=== PATIENT | female | born 1965 | race Caucasian/White ===

== ENCOUNTER → 2018-01-20 09:29 | Outpatient (CLI) | payer OTHER, SELFPAY | PROVIDERS: Family Provider Family Medicine; PCP Family Medicine; Visit Provider Internal Medicine Rheumatology | DX: M54.5 Low back pain (principal) | CPT/HCPCS: 72148; 72195 ==

== ENCOUNTER → 2018-06-03 07:12 | Outpatient (CLI) | payer OTHER, SELFPAY ==
[2018-06-03 10:24] LABS: Hemoglobin 12.8 g/dl (12.0-15.0); Mean Corp Hgb Conc 32.8 g/gl (32-36); Mean Corpuscular Hgb 31.2 pg (27.0-32.0); Mean Corpuscular Volume 95.1 fL (81-99); Mean Platelet Vol. 9.9 fl (6.2-12.0); Platelet Count 264 K/mm3 (150-450); RBC Distribution Width CV 12.6 % (11.6-14.6); RBC Distribution Width SD 44.1 fl (35.1-43.9); Scan Indicated on CBC? Y/N NO; White Blood Count 4.1 K/mm3 (4.4-11.0)
[2018-06-03 10:44] LABS: Vitamin D,25 Hydroxy 35.6 ng/mL (29.95-100.01)
[2018-06-03 10:53] LABS: AST(SGOT) 18 U/L (15-37); Alanine Aminotransfer ALT/SGPT 29 U/L (13-56); Albumin, Serum 3.7 g/dL (3.2-5.0); Alkaline Phosphatase 65 U/L (45-117); Anion Gap 8 (5-15); BUN 17 mg/dL (7-18); BUN/Creat Ratio 21.6 RATIO (10-20); Calcium,Total 8.9 mg/dL (8.5-10.1); Chloride 106 mmol/L (98-107); Cholesterol 248 mg/dL (200); Creatinine, Serum 0.79 mg/dL (0.55-1.02); EST Glomerular Filtration Rate 81 mL/min (>60); Est Glom Filt Rate - Afr Amer 98 mL/min (>60); Globulin 3.6 g/dL (2.2-4.2); Glucose 86 mg/dL (74-106); High Density Lipoprotein 74 mg/dL; Potassium 4.3 mmol/L (3.5-5.1); Protein, Total 7.3 g/dL (6.4-8.2); Sodium Level 142 mmol/L (136-145); Thyroid Stim Hormone (TSH) 6.04 uIU/mL (0.358-3.74); Triglycerides 66 mg/dL; Very Low Density Lipoprotein 13 mg/dL (5-40)
[2018-06-04 10:32] LABS: T4 Free Direct 0.86 ng/dL (0.76-1.46)
== END ==
PROVIDERS: Family Provider Family Medicine; PCP Family Medicine; Referring Provider Family Medicine; Visit Provider Family Medicine
DX: L40.50 Arthropathic psoriasis, unspecified (principal); R79.89 Other specified abnormal findings of blood chemistry; Z13.220 Encounter for screening for lipoid disorders; Z13.29 Encounter for screening for other suspected endocrine disorder
CPT/HCPCS: 36415; 80053; 80061; 82306; 84439; 84443; 85027

== ENCOUNTER → 2018-07-16 07:05 | Outpatient (CLI) | payer OTHER, SELFPAY ==
[2018-07-16 10:25] LABS: T4 Free Direct 1.36 ng/dL (0.76-1.46); Thyroid Stim Hormone (TSH) 0.58 uIU/mL (0.358-3.74)
== END ==
PROVIDERS: Family Provider Family Medicine; PCP Family Medicine; Referring Provider Family Medicine; Visit Provider Family Medicine
DX: R79.89 Other specified abnormal findings of blood chemistry (principal)
CPT/HCPCS: 36415; 84439; 84443

== ENCOUNTER 2018-09-20 22:17 | Emergency (ER) | payer OTHER, SELFPAY ==
[2018-09-20 22:18] VITALS: BP 160/88; PULSE 107; RESP 16; TEMP 36.6; O2SAT 100; BMI 25.4
--- NOTE | 2018-09-20 22:34 | ED.VIS.GEN ---
History of Present Illness Chief Complaint: Flank Pain Informant: Patient Narrative: Presents with right back pain. Patient stated yesterday she started having some aching pain in her right kidney. She has had kidney infections in the past. No significant home treatment. She has had some nausea. She denies any dysuria but she is having less urination than she normally does. No abdominal pain. She does not have any vomiting. Normal bowel movement tonight. Her pain is only in her back where her kidney lies. She has had a remote kidney stone. She is noted no blood in her urine. She has no right side pain or right abdominal pain. She has had a remote hysterectomy and unilateral oophorectomy. Current severity is mild to moderate. Nothing makes it better. Is not movement related. No injury. Past Medical History - Allergies and Home Meds Allergies/Adverse Reactions: Allergies codeine Allergy (Verified 09/20/18 22:20) Itching meloxicam [From Mobic] Allergy (Verified 09/20/18 22:20) Hives ciprofloxacin Adverse Reaction (Verified 09/20/18 22:20) Nausea nitrofurantoin [From Macrobid] Adverse Reaction (Verified 09/20/18 22:20) Nausea nitrofurantoin macrocrystalline [From Macrobid] Adverse Reaction (Verified 09/20/18 22:20) Nausea Primary Care Physician: Art Castaneda MD [Primary Care Provider] - Adis Antonio MD [STAFF PHYSICIAN] - Prior records reviewed: Yes Surgical History: hysterectomy Lives: Spouse/ Significant Other Smoking Status: Never smoker Alcohol: None Drugs: None Review of Systems General: Denies: Chills, Fever, Sweats Eyes: Denies: Visual changes - bilaterally, Diplopia ENT: Denies: Rhinorrhea, Sore throat Cardiovascular: Denies: Chest pain, Palpitations Respiratory: Denies: Dyspnea, Cough, Dyspnea on exertion Gastrointestinal: Reports: Nausea. Denies: Abdominal pain, Vomiting, Diarrhea, Melena, Hematochezia Genitourinary: Denies: Dysuria, Hematuria, Frequency Musculoskeletal: Reports: Back pain. Denies: Extremity Pain Skin: Denies: Rash, Wounds Neurological: Denies: Headache, Weakness, Numbness Physical Exam Vital Signs/Narrative: Vital Signs Temp Pulse Resp BP Pulse Ox 09/20/18 22:18 97.8 F 107 H 16 160/88 H 100 General: Well nourished, Well developed, No Acute Distress Head: Normocephalic, Atraumatic Eyes: Perrl, EOMI ENT: Moist mucous membranes, No rhinorrhea Neck: Supple, Nontender Cardiovascular: Regular rate, Regular rhythm, No murmurs Respiratory: No distress, CTA bilaterally, Chest nontender Abdomen: Soft, Nontender, Nondistended, Normal bowel sounds Back: Normal Inspection, CVA tenderness - Tenderness on the right. No flank tenderness.. Negative for: Nontender Extremities: Nontender, No edema Skin: Normal color, No rash Neurological: Alert, Oriented x3, Cranial nerves II-XII grossly intact, Normal Strength, Normal Sensation Psychological: Normal affect, Normal Mood Diagnostic/Tx/Re-eval - Medical Decision Making Patient given injection of morphine and po Zofran. Urine analysis obtained. Urinalysis negative for infection. Discussed with the patient and we decided to do further lab work. CBC relatively unremarkable. Electrolyte panel just shows a mildly elevated BUN otherwise nothing really acute. CT flank done to look for kidney stone or other abnormality. She has moderate hydronephrosis in the right kidney. However no stone seen. This hydronephrosis is up high at the ureteropelvic junction. I discussed this with the radiologist. He stated that it is probably from a stone. Patient has no congenital stenosis of her ureter that she knows of from the past. I do not think she needs an emergent admission. There is no urologist strategic planning consultant this evening to discuss outpatient follow-up. She has seen Dr. Antonio in the past and will call his office tomorrow. She feels much better. She will be discharged with Percocet, Zofran. She will continue ibuprofen. She probably has a nonvisualized stone with hydronephrosis. She understands that there may be another problem though. She could have a stenosis of the ureter. She understands this could be serious therefore she needs to follow-up. She understands she may need further imaging studies such as an IVP or MRI. ED Disposition - Plan for ED Patient: Disposition: Home or Assisted Living Diagnosis: Hydronephrosis of right kidney, Right flank pain Instructions: ED Flank Pain Uncertain Cause Prescriptions: Oxycodone HCl/Acetaminophen [Percocet 5/325] 1 tab PO Q6H PRN PRN 3 Days #12 tab PRN Reason: Pain Ondansetron [Zofran Odt] 4 mg PO Q8H PRN PRN #10 tab PRN Reason: Nausea Referrals: Art Castaneda MD [Primary Care Provider] - Adis Antonio MD [STAFF PHYSICIAN] -
[2018-09-20] MEDS: Morphine 4 MG/ML Syringe IM (22:48)
[2018-09-20] MEDS: Ondansetron ODT 4 MG Tablet PO (22:48)
[2018-09-20 23:02] LABS: Bacteria 0 SEEN /hpf (None Seen); Mucous, Urine 0 SEEN /hpf (<or=2+); Red Blood Cells-Urine 0 SEEN /hpf (0-5); White Blood Cells 0 SEEN /hpf (0-5)
[2018-09-20 23:13] LABS: Color, Urine Yellow (Yellow); Glucose, Dipstick Normal (Normal); Ketone-Dipstick Negative (Negative); Leukocyte Esterase-Dipstick Negative /ul (Negative); Nitrite-Dipstick Negative (Negative); Occult Blood-Urine Negative /ul (Negative); Protein-Dipstick Negative (Negative); Urine Bilirubin Dipstick Negative (Negative); Urine Clarity Sl. Cloudy (Clear); Urine Urobilinogen Normal (Normal)
[2018-09-20 23:19] LABS: Squamous Epithelial Cells - UA 0-5 SEEN /hpf (5-10)
--- NOTE | 2018-09-20 23:32 | CT_ITS ---
STUDY: CT ABDOMEN AND PELVIS WITHOUT CONTRAST REASON FOR EXAM: Female, 53 years old. Right lower quadrant pain. RADIATION DOSAGE (If Supplied By Facility): CTDIvol = ( 6.91 ) mGy, DLP = ( 340.32 ) mGycm TECHNIQUE: Transaxial images were obtained from the dome of the diaphragm to the symphysis pubis without oral contrast, and without intravenous contrast. Sagittal and coronal images were reconstructed. Individualized dose optimization techniques were used for this CT. COMPARISON: None. FINDINGS: The visualized lung bases are unremarkable. The visualized portions of the heart are within normal limits. There is a cyst in the right lobe of liver segment #8 measures 1.5 cm. Normal gallbladder and extrahepatic biliary system. Normal spleen. Normal pancreas. Normal bilateral adrenal glands. There is moderate hydronephrosis may be due to ureteropelvic junction stenosis no stones are seen in the right ureter. Normal left kidney. Normal visualized stomach. Normal small intestine. There are multiple colonic diverticula consistent with diverticulosis. There is mobile cecum. The appendix is visualized and appears normal. Normal abdominal aorta. Normal inferior vena cava. Normal retroperitoneum. Normal urinary bladder. Normal abdominal wall. Normal osseous structures. CT/Abdomen/Pelvis without Cont IMPRESSION: There is moderate hydronephrosis may be due to ureteropelvic junction stenosis no stones are seen in the right kidney are right ureter. Electronically Signed: Hao Sun, at 1:10 EDT Tel , Service support ,
[2018-09-20] MEDS: 0.9% Normal Saline 1,000 ML 250 ML IV (23:45)
[2018-09-20 23:55] LABS: Absolute Lymphocyte Count 1.55 X10^3/ul (0.83-4.51); Absolute Neutrophil Count 3.1 X10^3/uL (2.0-7.7); Basophil# 0.04 X10^3/uL; Basophil% 0.7 % (0-1); Eosinophil# 0.29 X10^3/uL; Hematocrit 37.5 % (37-47); Hemoglobin 12.9 g/dl (12.0-15.0); Lymphocyte # 1.55 X10^3/ul (4.0); Lymphocyte % 26.6 % (19-41); Mean Corp Hgb Conc 34.4 g/gl (32-36); Mean Corpuscular Hgb 31.7 pg (27.0-32.0); Mean Corpuscular Volume 92.1 fL (81-99); Mean Platelet Vol. 9.8 fl (6.2-12.0); Monocyte# 0.81 X10^3/uL; Monocyte% 13.9 % (0-10); Neutrophil # 3.12 X10^3/uL (2.7-7.7); Neutrophil % 53.6 % (47-70); POSITIVE DIFFERENTIAL NO; Platelet Count 277 K/mm3 (150-450); RBC Distribution Width CV 12.6 % (11.6-14.6); RBC Distribution Width SD 42.4 fl (35.1-43.9); Red Blood Count 4.07 M/mm3 (4.2-5.4); White Blood Count 5.8 K/mm3 (4.4-11.0)
[2018-09-20 23:56] LABS: POSITIVE COUNT NO; POSITIVE MORPHOLOGY NO
[2018-09-21 00:02] LABS: Anion Gap 2 (5-15); BUN 22 mg/dL (7-18); BUN/Creat Ratio 29.1 RATIO (10-20); Calcium,Total 8.9 mg/dL (8.5-10.1); Chloride 109 mmol/L (98-107); Creatinine, Serum 0.76 mg/dL (0.55-1.02); EST Glomerular Filtration Rate 85 mL/min (>60); Est Glom Filt Rate - Afr Amer 102 mL/min (>60); Estimated Creatinine Clearance 72.22 ml/min; Glucose 109 mg/dL (74-106); Potassium 4.3 mmol/L (3.5-5.1); Sodium Level 142 mmol/L (136-145)
[2018-09-21 01:57] VITALS: RESP 14
== END 2018-09-21 01:58 | disposition home or self-care (01) ==
PROVIDERS: Emergency Provider Emergency Medicine; Family Provider Family Medicine; PCP Family Medicine
DX: N13.30 Unspecified hydronephrosis (principal); R10.9 Unspecified abdominal pain; R11.0 Nausea; Z79.899 Other long term (current) drug therapy; Z87.442 Personal history of urinary calculi; Z90.710 Acquired absence of both cervix and uterus
CPT/HCPCS: 74176; 80048; 81001; 85025; 96360; 96361; 96372; 99283; J7030; A4216

== ENCOUNTER → 2018-09-25 10:29 | Outpatient (CLI) | payer OTHER, SELFPAY ==
[2018-09-20 22:18] VITALS: BMI 25.4
--- NOTE | 2018-09-25 10:34 | NM_ITS ---
CLINICAL: 53-year-old female with history of right kidney hydronephrosis. 99m Tc MAG3 DIURETIC RENAL SCINTIGRAPHY COMPARISON: CT of the abdomen-pelvis report 09/20/2018 FINDINGS: Following the intravenous administration of 10.8 mCi of 99m Tc MAG3, renal images reveal: 1. The flow study demonstrates symmetric arterial phase distribution of the radiopharmaceutical. 2. Immediate static delayed nephrogram images depict prompt, homogeneous tracer uptake by the renal parenchyma of both kidneys. Collecting structure visualization is identified at 3 minutes following tracer injection bilaterally. Washout of the radiopharmaceutical by the renal parenchyma appears qualitatively normal in both kidneys. Persistent collecting system activity is defined in the renal units during 20 minutes of pre-Lasix sequential image acquisition. Spontaneous drainage of the left kidney collecting system is demonstrated prior to furosemide administration. 3. The alwjw-rd-[id number] ratio of total renal parenchymal function was calculated to be 50/50. Furosemide 10 mg was administered intravenously. The post Lasix T 1/2 washout of the right kidney collecting system activity was calculated to be < 10 minutes, (normal < 10 minutes). NM/Renal Scan w/o Pharm Interven IMPRESSION: 1. There is preservation of bilateral renal parenchymal, cortical function. 2. The prominent-ectatic right kidney collecting system demonstrates a normal physiologic response to induced diuresis negating the presence of significant mechanical and/or functional obstruction. Electronically Signed: George Scherer DO at 8:08 EDT Tel , Service support ,
== END ==
PROVIDERS: Family Provider Family Medicine; PCP Family Medicine; Referring Provider Urology; Visit Provider Urology
DX: N13.30 Unspecified hydronephrosis (principal)
CPT/HCPCS: 78707; A9562; J1940

== ENCOUNTER → 2019-05-27 08:31 | Outpatient (CLI) | payer OTHER, SELFPAY ==
[2019-05-27 10:50] LABS: BUN 22 mg/dL (7-18); Creatinine, Serum 0.73 mg/dL (0.55-1.02); Glucose 95 mg/dL (74-106)
[2019-05-27 10:51] LABS: AST(SGOT) 20 U/L (15-37); Alanine Aminotransfer ALT/SGPT 29 U/L (13-56); Albumin, Serum 3.7 g/dL (3.2-5.0); Alkaline Phosphatase 70 U/L (45-117); Anion Gap 6 (5-15); BUN/Creat Ratio 30.1 RATIO (10-20); Chloride 106 mmol/L (98-107); Cholesterol 243 mg/dL (200); EST Glomerular Filtration Rate 88 mL/min (>60); Est Glom Filt Rate - Afr Amer 106 mL/min (>60); Globulin 3.7 g/dL (2.2-4.2); High Density Lipoprotein 81 mg/dL; Potassium 4.2 mmol/L (3.5-5.1); Protein, Total 7.4 g/dL (6.4-8.2); Sodium Level 140 mmol/L (136-145); T4 Free Direct 0.97 ng/dL (0.76-1.46); Thyroid Stim Hormone (TSH) 2.84 uIU/mL (0.358-3.74); Triglycerides 64 mg/dL; Very Low Density Lipoprotein 13 mg/dL (5-40)
[2019-05-27 11:43] LABS: Vitamin D,25 Hydroxy 25.7 ng/mL (29.95-100.01)
== END ==
PROVIDERS: Family Provider Family Medicine; PCP Family Medicine; Referring Provider Family Medicine; Visit Provider Family Medicine
DX: L40.50 Arthropathic psoriasis, unspecified (principal); E03.9 Hypothyroidism, unspecified; Z13.220 Encounter for screening for lipoid disorders
CPT/HCPCS: 36415; 80053; 80061; 82306; 84439; 84443

== ENCOUNTER → 2019-09-03 08:21 | Outpatient (CLI) | payer OTHER, SELFPAY ==
--- NOTE | 2019-09-03 08:27 | RAD_ITS ---
STUDY: X-RAY CHEST REASON FOR EXAM: Female, 54 years old. Cough, mid anterior chest burning x 1 month TECHNIQUE: PA and lateral views of the chest. COMPARISON: Comparison is made with prior examination dated November 01, 2016. FINDINGS: The previously seen left lower lobe infiltrate has cleared. Minimal increased markings in the upper lobes. Follow-up is recommended. Hyperinflation. There is no demonstrated pleural abnormality. Normal size heart. Normal mediastinum and nicole. Normal visualized pulmonary arteries. Normal visualized aortic arch and descending thoracic aorta. Normal visualized thoracic spine. Normal visualized ribs, clavicles, and shoulders. There is no demonstrated abnormality of the visualized soft tissue structures of the upper abdomen. RAD/Chest PA and Lateral IMPRESSION: Minimal increased markings in both upper lobes. Radiographic follow-up is recommended. Electronically Signed: Cole King, at 9:26 EDT , Service support ,
[2019-09-03 10:15] LABS: Absolute Lymphocyte Count 1.15 X10^3/uL (0.83-4.51); Absolute Neutrophil Count 2.7 X10^3/uL (2.0-7.7); Basophil# 0.04 X10^3/uL; Basophil% 0.9 % (0-1); Eosinophil# 0.11 X10^3/uL; Eosinophils% 2.5 % (0-5); Hematocrit 40.4 % (37-47); Hemoglobin 13.2 g/dL (12.0-15.0); Lymphocyte # 1.15 X10^3/ul (4.0); Lymphocyte % 25.8 % (19-41); Mean Corp Hgb Conc 32.7 g/dL (32-36); Mean Corpuscular Hgb 30.8 pg (27.0-32.0); Mean Corpuscular Volume 94.2 fL (81-99); Mean Platelet Vol. 10.5 fl (6.2-12.0); Monocyte# 0.45 X10^3/uL; Monocyte% 10.1 % (0-10); NRBC Flagged by Analyzer 0 % (0-5); Neutrophil # 2.69 X10^3/uL (2.7-7.7); Neutrophil % 60.5 % (47-70); Platelet Count 275 K/mm3 (150-450); RBC Distribution Width CV 12.7 % (11.6-14.6); RBC Distribution Width SD 43.8 fl (35.1-43.9); Red Blood Count 4.29 M/mm3 (4.2-5.4); White Blood Count 4.5 K/mm3 (4.4-11.0)
[2019-09-03 10:25] LABS: Anion Gap 3 (5-15); BUN 21 mg/dL (7-18); BUN/Creat Ratio 25.8 RATIO (10-20); Calcium,Total 9.6 mg/dL (8.5-10.1); Chloride 107 mmol/L (98-107); Creatinine, Serum 0.81 mg/dL (0.55-1.02); EST Glomerular Filtration Rate 77 mL/min (>60); Est Glom Filt Rate - Afr Amer 94 mL/min (>60); Glucose 98 mg/dL (74-106); Potassium 3.9 mmol/L (3.5-5.1); Sodium Level 141 mmol/L (136-145); Thyroid Stim Hormone (TSH) 2.31 uIU/mL (0.358-3.74)
== END ==
PROVIDERS: PCP Family Medicine; Referring Provider Family Medicine; Visit Provider Family Medicine
DX: R07.9 Chest pain, unspecified (principal); E03.9 Hypothyroidism, unspecified; R05 Cough
CPT/HCPCS: 36415; 71046; 80048; 84443; 85025

== ENCOUNTER → 2019-10-26 11:30 | Outpatient (CLI) | payer OTHER, SELFPAY ==
--- NOTE | 2019-10-26 11:32 | RAD_ITS ---
STUDY: X-RAY CHEST REASON FOR EXAM: Female, 54 years old. Cough TECHNIQUE: PA and lateral views of the chest. COMPARISON: 09/03/2019 FINDINGS: The lungs are clear and expanded. There is no demonstrated pleural abnormality. Normal size heart. Normal mediastinum and nicole. Normal visualized pulmonary arteries. Normal visualized aortic arch and descending thoracic aorta. Normal visualized thoracic spine. Normal visualized ribs, clavicles, and shoulders. There is no demonstrated abnormality of the visualized soft tissue structures of the upper abdomen. RAD/Chest PA and Lateral IMPRESSION: Normal x-ray examination of the chest. Electronically Signed: Hugo Kuo MD at 11:50 EDT , Service support ,
== END ==
PROVIDERS: PCP Family Medicine; Referring Provider Family Medicine; Visit Provider Family Medicine
DX: R05 Cough (principal)
CPT/HCPCS: 71046

== ENCOUNTER → 2019-12-07 16:46 | Outpatient (CLI) | payer OTHER, SELFPAY ==
[2019-12-07 17:35] LABS: Absolute Lymphocyte Count 1.36 X10^3/uL (0.83-4.51); Absolute Neutrophil Count 3.5 X10^3/uL (2.0-7.7); Basophil# 0.03 X10^3/uL; Basophil% 0.5 % (0-1); Eosinophil# 0.13 X10^3/uL; Eosinophils% 2.3 % (0-5); Hematocrit 40.5 % (37-47); Hemoglobin 13.2 g/dL (12.0-15.0); Lymphocyte # 1.36 X10^3/ul (4.0); Lymphocyte % 24.4 % (19-41); Mean Corp Hgb Conc 32.6 g/dL (32-36); Mean Corpuscular Hgb 31.4 pg (27.0-32.0); Mean Corpuscular Volume 96.4 fL (81-99); Mean Platelet Vol. 10.2 fl (6.2-12.0); Monocyte# 0.58 X10^3/uL; Monocyte% 10.4 % (0-10); NRBC Flagged by Analyzer 0 % (0-5); Neutrophil # 3.47 X10^3/uL (2.7-7.7); Neutrophil % 62.2 % (47-70); Platelet Count 281 K/mm3 (150-450); RBC Distribution Width CV 12.7 % (11.6-14.6); RBC Distribution Width SD 45.1 fl (35.1-43.9); White Blood Count 5.6 K/mm3 (4.4-11.0)
[2019-12-07 18:09] LABS: AST(SGOT) 13 U/L (15-37); Alanine Aminotransfer ALT/SGPT 27 U/L (13-56); Albumin, Serum 3.9 g/dL (3.2-5.0); Alkaline Phosphatase 73 U/L (45-117); Anion Gap 6 (5-15); BUN 23 mg/dL (7-18); Calcium,Total 8.7 mg/dL (8.5-10.1); Chloride 105 mmol/L (98-107); Creatinine, Serum 0.77 mg/dL (0.55-1.02); EST Glomerular Filtration Rate 83 mL/min (>60); Est Glom Filt Rate - Afr Amer 100 mL/min (>60); Globulin 3.8 g/dL (2.2-4.2); Glucose 94 mg/dL (74-106); Potassium 3.7 mmol/L (3.5-5.1); Protein, Total 7.7 g/dL (6.4-8.2); Sodium Level 140 mmol/L (136-145)
== END ==
PROVIDERS: PCP Family Medicine; Referring Provider Family Medicine; Visit Provider Family Medicine
DX: R10.9 Unspecified abdominal pain (principal)
CPT/HCPCS: 36415; 80053; 85025

== ENCOUNTER → 2020-02-18 | Outpatient (CLI) | payer OTHER, SELFPAY | END | disposition home or self-care (01) | LOC: LABSPEC 15:57 | PROVIDERS: PCP Family Medicine; Visit Provider Family Medicine | DX: N39.0 Urinary tract infection, site not specified (principal) | CPT/HCPCS: 87086; 87088 ==

== ENCOUNTER → 2020-07-11 08:01 | Outpatient (CLI) | payer OTHER, SELFPAY ==
[2020-07-11 10:12] LABS: Vitamin D,25 Hydroxy 29.2 ng/mL
[2020-07-11 10:25] LABS: Anion Gap 1 (5-15); BUN 27 mg/dL (7-18); BUN/Creat Ratio 27.6 RATIO (10-20); Calcium,Total 9.4 mg/dL (8.5-10.1); Chloride 105 mmol/L (98-107); Creatinine, Serum 0.98 mg/dL (0.55-1.02); EST Glomerular Filtration Rate 62 mL/min (>60); Est Glom Filt Rate - Afr Amer 75 mL/min (>60); Glucose 91 mg/dL (74-106); Potassium 3.9 mmol/L (3.5-5.1); Sodium Level 137 mmol/L (136-145); T4 Free Direct 0.89 ng/dL (0.76-1.46); Thyroid Stim Hormone (TSH) 2.98 uIU/mL (0.358-3.74)
== END ==
PROVIDERS: PCP Family Medicine; Referring Provider Family Medicine; Visit Provider Family Medicine
DX: K29.60 Other gastritis without bleeding (principal); E03.9 Hypothyroidism, unspecified; E55.9 Vitamin D deficiency, unspecified
CPT/HCPCS: 36415; 80048; 82306; 84439; 84443

== ENCOUNTER → 2020-11-13 14:23 | Outpatient (CLI) | payer SELFPAY ==
--- NOTE | 2020-11-13 14:32 | CT_ITS ---
STUDY: CT CHEST WITHOUT CONTRAST-Limited (Overread for coronary calcium scoring) REASON FOR EXAM: Female, 55 years old. CAD RADIATION DOSAGE (If Supplied By Facility): CTDIvol = ( 12.19 ) mGy, DLP = ( 219.42 ) mGycm TECHNIQUE: Transaxial imaging was performed without the administration of intravenous contrast material. Individualized dose optimization techniques were used for this CT. COMPARISON: None. FINDINGS: There are scattered areas of peribronchial micronodules and reticulation involving the bilateral upper and right lower lobes. No dense airspace consolidation. No discrete mass. There is no demonstrated pleural abnormality. Heart and coronary arteries described on calcium scoring report. Normal mediastinum. Normal hilar regions. Normal unenhanced pulmonary arteries. Normal aorta arch and descending thoracic aorta. Normal osseous structures. Simple cyst of the anterior liver. No required imaging follow-up needed given high likelihood of benign nature. CT/Limited Chest CT w/CCTA IMPRESSION: 1. Bilateral upper lobe and right lower lobe peribronchial/bronchovascular micronodules and reticulation, most typical of pneumonitis or bronchiolitis, unknown acuity. Electronically Signed: Nelson Kay MD ([place]) at 8:29 EDT , Service support ,
[2020-11-13 14:36] VITALS: BP 137/68; PULSE 68; RESP 16; O2SAT 99; BMI 24.9
--- NOTE | 2020-11-20 09:59 | CA.SCORE ---
Calcium Scoring Date of Study:: 11/13/20 Coronary Calcium Scoring: High-resolution Computed Tomographic imaging of the chest was performed on 11/13/2020 with particular attention paid to the coronary arteries. Images from the examination were analyzed for the presence and extent of coronary artery calcification , using coronary calcium quantification software. The patient tolerated the procedure well and there were no complications. The results of the coronary calcification analysis are provided below. Findings Coronary Artery Left Main (LM): 0 Left Anterior Descending (LAD): 0 Left Circumflex (LCX): 0 Right Coronary Artery (RCA): 0 Total Agatston Score: 0 Percentile Ranking: Based upon prepublished reference tables 25% of the patients of the same gender/similar age had the same/lower scores. Calcium Scoring Interpretation: 0 No identifiable atherosclerotic plaque. Very low cardiovascular disease risk. <5% chance of presence coronary artery disease A Negative Examination 1-10 Minimal Plaque burden. Significant coronary artery disease very unlikely. 11-100 Mild plaque burden. Likely mild or minimal coronary atherosclerosis. 101-400 Moderate plaque burden Moderate non-obstructive coronary artery disease highly likely. Over 400 Extensive plaque burden. High likelihood of at least one significant coronary stenosis (>50% diameter) Calcium Score: 0 Negative Examination Conclusion: Continue cardiovascular evaluation and care as deemed appropriate.
== END ==
PROVIDERS: PCP Family Medicine; Referring Provider Family Medicine; Visit Provider Family Medicine
DX: E78.5 Hyperlipidemia, unspecified (principal); Z82.49 Family history of ischemic heart disease and other diseases of the circulatory system
CPT/HCPCS: 75571; 76380

== ENCOUNTER 2021-05-20 10:06 | Emergency (ER) | payer OTHER, SELFPAY ==
[2021-05-20] VITALS (10 sets, daily range): BP systolic 120–153; BP diastolic 61–126; PULSE 107–124; RESP 18–22; TEMP 36.9–38.8; O2SAT 90–100; BMI 27.6
--- NOTE | 2021-05-20 10:21 | RAD_ITS ---
STUDY: X-RAY CHEST REASON FOR EXAM: Female, 55 years old. Cough fever diverticulitis and abdominal pain for 3 weeks nausea cough TECHNIQUE: Frontal portable view of the chest COMPARISON: 26 Oct 2019 FINDINGS: The lungs are clear and expanded. There is no demonstrated pleural abnormality. Normal size heart. Normal mediastinum and nicole. Normal visualized pulmonary arteries. Normal visualized aortic arch and descending thoracic aorta. Normal visualized thoracic spine. Normal visualized ribs, clavicles, and shoulders. There is no demonstrated abnormality of the visualized soft tissue structures of the upper abdomen. RAD/Chest 1 View (Portable) IMPRESSION: Normal x-ray examination of the chest. Electronically Signed: Ania Beth MD at 11:30 EST Tel , Service support ,
--- NOTE | 2021-05-20 10:21 | CT_ITS ---
STUDY: CT ABDOMEN AND PELVIS WITH CONTRAST REASON FOR EXAM: Female, 55 years old. Abdominal pain -- IV PO Contrast RADIATION DOSAGE (If Supplied By Facility): CTDIvol = ( 12.99 ) mGy, DLP = ( 818.74 ) mGycm TECHNIQUE: Transaxial images were obtained from the dome of the diaphragm to the symphysis pubis without oral contrast. Oral and amp; IV Gastrografin and amp; 100mL [id number]-[id number] was administered. Sagittal and coronal images were reconstructed. Individualized dose optimization techniques were used for this CT. COMPARISON: CT of the chest dated 11/13/[address] of the abdomen and pelvis dated 12/07/2015 FINDINGS: There are new patchy opacities within the left lower lobe associated with bilateral lower lobe groundglass opacities . The visualized portions of the heart are within normal limits. There is a grossly stable 8 mm low-attenuation focus within the right hepatic lobe which may reflect an underlying cyst or hemangioma. There is an additional too small to characterize low-attenuation focus within the left hepatic lobe. There is a low-attenuation focus within segment 4 adjacent to the falciform ligament likely secondary to focal fat. Normal gallbladder and extrahepatic biliary system. Normal spleen. Normal pancreas. Normal bilateral adrenal glands. There are bilateral extrarenal pelvises, more pronounced on the right. Normal visualized stomach. Normal small intestine. There are multiple colonic diverticula consistent with diverticulosis. There is a stool filled cecum that is mildly dilated within the left abdomen. There appears to be fluid within the cecum visualized as well. The appendix is visualized and appears normal. Normal abdominal aorta. Normal inferior vena cava. Normal retroperitoneum. Normal urinary bladder. Normal abdominal wall. Normal osseous structures. CT/Abdomen/Pelvis WITH Contrast IMPRESSION: Mildly dilated and stool-filled cecum within the left abdomen with an appearance suggestive of a cecal bascule. New patchy opacities within the left lower lobe associated with bilateral lower lobe groundglass opacities may reflect pneumonia. Colonic diverticulosis. Electronically Signed: Nina Rios MD at 13:41 EST Tel , Service support ,
--- NOTE | 2021-05-20 10:24 | ED.VIS.GI ---
HPI HPI - GI History of Present Illness Chief Complaint: Abd Pain Informant: patient Abdominal Pain/Flank Pain Onset: Weeks (4) Context: Gradual Onset Timing: Continuous Quality: Dull Location: LUQ and LLQ Worsened by: - (Bowel movement) Relieved by: Nothing Nausea/Vomiting/Emesis GI Symptom: Positive for Nausea; Negative for Vomiting Diarrhea/Melena/Hematochezia GI Symptom: Negative for Diarrhea, Melena and Hematochezia Associated Symptoms Associated Symptoms: Negative for Dysuria, Frequency and Hematuria Narrative Narrative: Patient presents with left-sided abdominal pain that has been getting worse over the past 4 weeks. Patient states it has gotten worse over the last 1 to 3 days. Patient states it feels similar to prior episodes of diverticulitis. Patient describes her pain is dull. Patient states the pain is worse of the left upper and left lower quadrants. Patient states her pain is worse whenever she has a bowel movement. Patient admits to nausea but denies any vomiting. Patient denies any diarrhea, melena, or hematochezia. Patient denies any dysuria or hematuria. Patient also admits to some upper respiratory congestion with rhinorrhea and a cough. Patient admits to fevers of up to 100.7 at home. Patient also admits to a headache. [facility] Medical History (Updated 05/20/21 @ 17:[address] Kelvin Ramesh DO) Diverticulitis Home Medications levothyroxine 75 mcg PO DAILY 09/20/18 [History Last Taken Unknown] ondansetron 4 mg PO Q8H PRN PRN #10 tab 09/21/18 [Rx Last Taken Unknown] Allergy/AdvReac Type Severity Reaction Status Date / Time codeine Allergy Itching Verified 05/20/21 10:07 meloxicam [From Mobic] Allergy Hives Verified 05/20/21 10:07 ciprofloxacin AdvReac Nausea Verified 05/20/21 10:07 nitrofurantoin AdvReac Nausea Verified 05/20/21 10:07 [From Macrobid] nitrofurantoin AdvReac Nausea Verified 05/20/21 10:07 macrocrystalline [From Macrobid] Surgical History History of endometrial ablation History of hysterectomy Social History Smoking Status: Never smoker ROS ROS ED Constitutional Constitutional ED: Reports fever(s); Denies chills Eyes Eyes: Denies blurry vision or change in vision ENT ENT ED: Reports rhinorrhea; Denies sore throat Cardiovascular Cardiovascular: Reports chest pain; Denies palpitations Respiratory/Chest Respiratory/Chest: Reports cough; Denies dyspnea Gastrointestinal Gastrointestinal: Reports abdominal pain and nausea; Denies diarrhea, melena or vomiting Genitourinary Genitourinary ED: Denies dysuria or hematuria Musculoskeletal Musculoskeletal: Reports neck pain; Denies back pain Integumentary Denies abscess or rash Neurologic Neurologic: Reports headache(s); Denies weakness Allergic/Immunologic Allergic/Immunologic ED: Denies mouth swelling or urticaria EXAM Physical Exam Const Vital Signs: 05/20/21 10:07 05/20/21 10:22 05/20/21 10:53 Temperature 100.4 F H 100.4 F H Temperature Source Temporal Temporal Pulse Rate 113 H 113 H Respiratory Rate 18 18 Respiratory Effort Non-Labored Blood Pressure 153/126 H 153/126 H Blood Pressure Mean 135 135 Pulse Ox 100 100 Oxygen Delivery Method Room Air Room Air Oxygen Flow Rate (L/min) 05/20/21 11:12 05/20/21 12:00 05/20/21 13:25 Temperature 99.2 F H 99.2 F H Temperature Source Oral Oral Pulse Rate 121 H 121 H Respiratory Rate 18 20 H Respiratory Effort Blood Pressure 120/91 H 134/76 H Blood Pressure Mean 100 95 Pulse Ox 96 96 90 Oxygen Delivery Method Room Air Room Air Room Air Oxygen Flow Rate (L/min) 05/20/21 13:30 05/20/21 14:00 05/20/21 15:05 Temperature 98.9 F 98.9 F 98.5 F Temperature Source Oral Oral Temporal Pulse Rate 124 H 120 H 110 H Respiratory Rate 18 18 20 H Respiratory Effort Blood Pressure 129/73 H 126/62 H 130/75 H Blood Pressure Mean 91 83 93 Pulse Ox 96 96 95 Oxygen Delivery Method Nasal Cannula Nasal Cannula Room Air Oxygen Flow Rate (L/min) 2 2 05/20/21 16:11 05/20/21 17:11 Temperature 101.3 F H 101.8 F H Temperature Source Temporal Temporal Pulse Rate 107 H 112 H Respiratory Rate 22 H 18 Respiratory Effort Blood Pressure 134/61 H 130/70 H Blood Pressure Mean 85 90 Pulse Ox 97 97 Oxygen Delivery Method Room Air Room Air Oxygen Flow Rate (L/min) Positive well nourished and well developed General Appearance ED: well developed HEENT Reports moist mucous membranes Neck supple and no JVD Resp normal respiratory effort Auscultation: diminished lung sounds bilateral Cardio regular rate, regular rhythm and no murmurs GI normal to inspection, nondistended, normoactive bowel sounds and non-distended Palpation: soft and tender LLQ and LUQ; Negative for guarding or rebound tenderness present Extremity normal to inspection General Extremety ED: Negative for edema or tenderness General Extremity: Negative for edema Neuro oriented x3, CN's II-XII intact bilaterally and no sensory deficits noted Sensorium / Orientation: alert Motor Exam: strength 5/5 throughout Psych mental status grossly normal Skin no rashes or lesions noted MDM MDM MDM Narrative Medical decision making narrative: Patient was given IV fluids, morphine, and Zofran. CBC was within normal limits. Comprehensive metabolic profile was essentially within normal limits. Lipase was normal. Urinalysis does not show any evidence of urinary tract infection. Portable 1 view chest x-ray was obtained. On my interpretation, lung parrish are clear. There is normal cardiac silhouette. Bony thorax is normal. There is no acute process noted. Radiologist also interpreted the x-ray and agrees. CT scan of the abdomen and pelvis was obtained. There is a mildly dilated and stool-filled cecum within the left abdomen with an appearance suggestive of a cecal bascule. There are new patchy opacities in the left lower lobe and bilateral lower lobe groundglass opacities. This was interpreted by the radiologist and reviewed by myself. COVID-19 rapid antigen was obtained and was negative. Patient continued to have a headache. Patient was given Reglan and Benadryl. Patient was advised of her findings. Case was discussed with Dr. Coelho from general surgery. He will be in to evaluate the patient. He recommended obtaining a lactate which was normal. He discussed the case with the radiologist. Radiologist felt that this was chronic. He discussed options of laxatives with the patient. Patient is feeling better and wants to go home. Patient was instructed to take her laxatives as prescribed. Patient was given a dose of Tylenol here. Patient was instructed to continue Tylenol and ibuprofen as needed for any fevers. Patient was instructed to follow-up with her primary care physician as well as Dr. Coelho in 5 to 7 days. Patient understood and was agreeable with the plan. All questions were answered. Lab Data Attestation: I reviewed the patient's lab results. Labs: Laboratory Results - last 24 hr 05/20/21 05/20/21 05/20/21 10:24 10:24 10:38 WBC 9.4 RBC 4.18 L Hgb 13.1 Hct 39.7 MCV 95.0 MCH 31.3 MCHC 33.0 RDW Std Deviation 43.8 RDW Coeff of Faisal 12.5 Plt Count 316 MPV 9.4 Immature Gran % (Auto) 0.600 Neut % (Auto) 80.9 H Lymph % (Auto) 12.0 L [place] % (Auto) 5.3 Eos % (Auto) 0.9 Baso % (Auto) 0.3 Absolute Neuts (auto) 7.6 Absolute Lymphs (auto) 1.13 Nucleated RBC % 0 Sodium 138 Potassium 4.3 Chloride 104 Carbon Dioxide 28.0 Anion Gap 6 BUN 17 Creatinine 1.04 H Estim Creat Clear Calc 49.37 Est GFR (MDRD) Af Amer 70 Est GFR (MDRD) Non-Af 58 L BUN/Creatinine Ratio 16.3 Glucose 115 H Lactic Acid Calcium 9.4 Total Bilirubin 0.40 AST 36 ALT 48 Alkaline Phosphatase 126 H Total Protein 8.0 Albumin 3.5 Globulin 4.5 H Albumin/Globulin Ratio 0.8 L Lipase 85 Urine Color Yellow Urine Clarity Clear Urine pH 6.0 Ur Specific [place] 1.010 Urine Protein Negative Urine Glucose (UA) Normal Urine Ketones Negative Urine Occult Blood Negative Urine Nitrite Negative Urine Bilirubin Negative Urine Urobilinogen Normal Ur Leukocyte Esterase 25 H Urine RBC 0 SEEN Urine WBC 0 SEEN Ur Squamous Epith Cells 0 SEEN Urine Bacteria 0 SEEN Urine Mucus 0 SEEN 05/20/21 16:30 WBC RBC Hgb Hct MCV MCH MCHC RDW Std Deviation RDW Coeff of Faisal Plt Count MPV Immature Gran % (Auto) Neut % (Auto) Lymph % (Auto) [place] % (Auto) Eos % (Auto) Baso % (Auto) Absolute Neuts (auto) Absolute Lymphs (auto) Nucleated RBC % Sodium Potassium Chloride Carbon Dioxide Anion Gap BUN Creatinine Estim Creat Clear Calc Est GFR (MDRD) Af Amer Est GFR (MDRD) Non-Af BUN/Creatinine Ratio Glucose Lactic Acid 0.7 Calcium Total Bilirubin AST ALT Alkaline Phosphatase Total Protein Albumin Globulin Albumin/Globulin Ratio Lipase Urine Color Urine Clarity Urine pH Ur Specific [place]ckerman Urine Protein Urine Glucose (UA) Urine Ketones Urine Occult Blood Urine Nitrite Urine Bilirubin Urine Urobilinogen Ur Leukocyte Esterase Urine RBC Urine WBC Ur Squamous Epith Cells Urine Bacteria Urine Mucus Radiography Diagnostic Testing: Clinical Impression(s) from Imaging Studies Abdomen/Pelvis CT 05/20/21 10:21 IMPRESSION: Mildly dilated and stool-filled cecum within the left abdomen with an appearance suggestive of a cecal bascule. New patchy opacities within the left lower lobe associated with bilateral lower lobe groundglass opacities may reflect pneumonia. Colonic diverticulosis. Electronically Signed: Nina Rios MD at 13:41 EST Tel , Service support , Chest X-Ray 05/20/21 10:21 IMPRESSION: Normal x-ray examination of the chest. Electronically Signed: Ania Beth MD at 11:30 EST Tel , Service support , Discharge Plan Triage Chief Complaint: Abd Pain ED Provider: Kelvin Ramesh Dx/Rx/DC Orders Clinical Impression: Abdominal pain in female, Constipation, Acute febrile illness Instructions: ED Abdominal Pain Unkn Cause Fem, ED Fever Control (Adult) Prescriptions: No Action levothyroxine 75 MCG tablet 75 mcg PO DAILY RF: 0 ondansetron 4 MG tablet 4 mg PO Q8H PRN PRN (Reason: Nausea) Qty: 10 RF: 0 Primary Care Provider: Art Castaneda Referrals: Art Castaneda MD [Primary Care Provider] - 5-7 Days Titus Coelho MD [STAFF PHYSICIAN] - 5-7 Days Disposition Disposition: Home, Self Care
[2021-05-20 10:33] LABS: Absolute Lymphocyte Count 1.13 X10^3/uL (0.83-4.51); Absolute Neutrophil Count 7.6 X10^3/uL (2.0-7.7); Basophil# 0.03 X10^3/uL; Basophil% 0.3 % (0-1); Eosinophil# 0.08 X10^3/uL; Eosinophils% 0.9 % (0-5); Hematocrit 39.7 % (37-47); Hemoglobin 13.1 g/dL (12.0-15.0); Lymphocyte # 1.13 X10^3/ul (0.83-4.51); Mean Corpuscular Hgb 31.3 pg (27.0-32.0); Mean Platelet Vol. 9.4 fl (6.2-12.0); Monocyte% 5.3 % (0-10); NRBC Flagged by Analyzer 0 % (0-5); Neutrophil # 7.61 X10^3/uL (2.7-7.7); Neutrophil % 80.9 % (47-70); Platelet Count 316 K/mm3 (150-450); RBC Distribution Width CV 12.5 % (11.6-14.6); RBC Distribution Width SD 43.8 fl (35.1-43.9); Red Blood Count 4.18 M/mm3 (4.2-5.4); White Blood Count 9.4 K/mm3 (4.4-11.0)
[2021-05-20] MEDS: Morphine 4 MG/ML Syringe IV ×2 (10:43→12:56)
[2021-05-20] MEDS: Ondansetron 4 MG/2 ML Vial IV (10:43)
[2021-05-20] MEDS: 0.9% Normal Saline 1,000 ML 1000 ML IV ×2 (10:43→12:56)
[2021-05-20 10:52] LABS: ALB/GLOB Ratio 0.8 RATIO (0.9-2.4); AST(SGOT) 36 U/L (15-37); Alanine Aminotransfer ALT/SGPT 48 U/L (13-56); Albumin, Serum 3.5 g/dL (3.2-5.0); Alkaline Phosphatase 126 U/L (45-117); Anion Gap 6 (5-15); BUN 17 mg/dL (7-18); BUN/Creat Ratio 16.3 RATIO (10-20); Calcium,Total 9.4 mg/dL (8.5-10.1); Chloride 104 mmol/L (98-107); Creatinine, Serum 1.04 mg/dL (0.55-1.02); EST Glomerular Filtration Rate 58 mL/min (>60); Est Glom Filt Rate - Afr Amer 70 mL/min (>60); Estimated Creatinine Clearance 49.37 ml/min; Globulin 4.5 g/dL (2.2-4.2); Glucose 115 mg/dL (74-106); Lipase 85 U/L (73-393); Potassium 4.3 mmol/L (3.5-5.1); Sodium Level 138 mmol/L (136-145)
[2021-05-20 10:54] LABS: Bacteria 0 SEEN /hpf (None Seen); Mucous, Urine 0 SEEN /hpf (<or=2+); Red Blood Cells-Urine 0 SEEN /hpf (0-5); Squamous Epithelial Cells - UA 0 SEEN /hpf (5-10); White Blood Cells 0 SEEN /hpf (0-5)
[2021-05-20 10:55] LABS: Color, Urine Yellow (Yellow); Glucose, Dipstick Normal (Normal); Ketone-Dipstick Negative (Negative); Leukocyte Esterase-Dipstick 25 /ul (Negative); Nitrite-Dipstick Negative (Negative); Occult Blood-Urine Negative /ul (Negative); Protein-Dipstick Negative (Negative); Urine Bilirubin Dipstick Negative (Negative); Urine Clarity Clear (Clear); Urine Urobilinogen Normal (Normal)
[2021-05-20] MEDS: Metoclopramide 10 MG/2 ML Vial IV (16:33)
[2021-05-20] MEDS: DiphenhydrAMINE 50 MG/ML Syringe 25 MG IV (16:34)
[2021-05-20 17:06] LABS: Lactic Acid 0.7 mmol/L (0.4-1.9)
--- NOTE | 2021-05-20 17:27 | PCM.HP.STD ---
HPI - General HPI Narrative AGUSTO EVERETT, is a 55 F who presents to [facility] with a 4-week history of left lower quadrant abdominal pain. She states she has a remote history of diverticulitis and believed her symptoms to be connected to another diverticular flare. She confirms a chronic history of constipation and states a frequency of once every couple of days it is usually her normal routine, but it has been more difficult to have a bowel movement recently. She also describes an exacerbation of her left lower quadrant pain with any bowel movement she has. Mrs. Everett does states she had a rather normal bowel movement while in the emergency room following some use of fiber earlier today. Patient's ER work-up is notable for some vitals that show regular tachycardia and febrile with T-max of 101.5 Fahrenheit. Laboratory studies show a normal white blood cell count but a mild left shift. CT imaging is read as concerning for possible cecal bascule. Is for this reason that surgery is consulted for the further evaluation of the patient. Patient has a history of 2 prior colonoscopies. She states she is likely due for a follow-up/surveillance colonoscopy but denies any significant findings with her last exam. She states that her family history is full of diagnoses of colitis and diverticulitis but denies history of colon cancer. Lastly she confirms a history of hysterectomy. Beyond her abdominal complaints, patient complains of a severe headache and some recent upper respiratory issues. She and her have 14 grandchildren who are frequently in the home and frequently transmit their maladies to their grandparents. [facility] Medical History (Updated 05/20/21 @ 17:[address] Kelvin Ramesh, DO) Diverticulitis Home Medications levothyroxine 75 mcg PO DAILY 09/20/18 [History Last Taken Unknown] ondansetron 4 mg PO Q8H PRN PRN #10 tab 09/21/18 [Rx Last Taken Unknown] Allergy/AdvReac Type Severity Reaction Status Date / Time codeine Allergy Itching Verified 05/20/21 10:07 meloxicam [From Mobic] Allergy Hives Verified 05/20/21 10:07 ciprofloxacin AdvReac Nausea Verified 05/20/21 10:07 nitrofurantoin AdvReac Nausea Verified 05/20/21 10:07 [From Macrobid] nitrofurantoin AdvReac Nausea Verified 05/20/21 10:07 macrocrystalline [From Macrobid] Surgical History History of endometrial ablation History of hysterectomy Social History Smoking Status: Never smoker Vital Signs Vital Signs Vital Signs: 05/20/21 10:07 05/20/21 10:22 05/20/21 10:53 Temperature 100.4 F H 100.4 F H Temperature Source Temporal Temporal Pulse Rate 113 H 113 H Respiratory Rate 18 18 Respiratory Effort Non-Labored Blood Pressure 153/126 H 153/126 H Blood Pressure Mean 135 135 Pulse Ox 100 100 Oxygen Delivery Method Room Air Room Air Oxygen Flow Rate (L/min) 05/20/21 11:12 05/20/21 12:00 05/20/21 13:25 Temperature 99.2 F H 99.2 F H Temperature Source Oral Oral Pulse Rate 121 H 121 H Respiratory Rate 18 20 H Respiratory Effort Blood Pressure 120/91 H 134/76 H Blood Pressure Mean 100 95 Pulse Ox 96 96 90 Oxygen Delivery Method Room Air Room Air Room Air Oxygen Flow Rate (L/min) 05/20/21 13:30 05/20/21 14:00 05/20/21 15:05 Temperature 98.9 F 98.9 F 98.5 F Temperature Source Oral Oral Temporal Pulse Rate 124 H 120 H 110 H Respiratory Rate 18 18 20 H Respiratory Effort Blood Pressure 129/73 H 126/62 H 130/75 H Blood Pressure Mean 91 83 93 Pulse Ox 96 96 95 Oxygen Delivery Method Nasal Cannula Nasal Cannula Room Air Oxygen Flow Rate (L/min) 2 2 05/20/21 16:11 05/20/21 17:11 Temperature 101.3 F H 101.8 F H Temperature Source Temporal Temporal Pulse Rate 107 H 112 H Respiratory Rate 22 H 18 Respiratory Effort Blood Pressure 134/61 H 130/70 H Blood Pressure Mean 85 90 Pulse Ox 97 97 Oxygen Delivery Method Room Air Room Air Oxygen Flow Rate (L/min) Weight Weight: 156 lb 1.396 oz Body Mass Index (BMI) 27.6 Physical Exam Const alert and oriented x3 Constitutional Narrative: Mild distress?primarily from severe headache General Appearance: cooperative Resp normal respiratory effort Cardio Rate: tachycardic GI GI Narrative: Nondistended, mildly overweight, several port site incisions from prior laparoscopic operation. Nontender to palpation x4 quadrants aside from very mild tenderness in the left upper quadrant with deep palpation. Results Lab / Micro Data Result Diagrams: 05/20/21 10:24 05/20/21 10:24 Labs: Laboratory Results - last 24 hr 05/20/21 10:24: WBC 9.4, RBC 4.18 L, Hgb 13.1, Hct 39.7, MCV 95.0, MCH 31.3, MCHC 33.0, RDW Std Deviation 43.8, RDW Coeff of Faisal 12.5, Plt Count 316, MPV 9.4, Immature Gran % (Auto) 0.600, Neut % (Auto) 80.9 H, Lymph % (Auto) 12.0 L, [place] % (Auto) 5.3, Eos % (Auto) 0.9, Baso % (Auto) 0.3, Absolute Neuts (auto) 7.6, Absolute Lymphs (auto) 1.13, Nucleated RBC % 0 05/20/21 10:24: Sodium 138, Potassium 4.3, Chloride 104, Carbon Dioxide 28.0, Anion Gap 6, BUN 17, Creatinine 1.04 H, Estim Creat Clear Calc 49.37, Est GFR (MDRD) Af Amer 70, Est GFR (MDRD) Non-Af 58 L, BUN/Creatinine Ratio 16.3, Glucose 115 H, Calcium 9.4, Total Bilirubin 0.40, AST 36, ALT 48, Alkaline Phosphatase 126 H, Total Protein 8.0, Albumin 3.5, Globulin 4.5 H, Albumin/Globulin Ratio 0.8 L, Lipase 85 05/20/21 10:38: Urine Color Yellow, Urine Clarity Clear, Urine pH 6.0, Ur Specific [place] 1.010, Urine Protein Negative, Urine Glucose (UA) Normal, Urine Ketones Negative, Urine Occult Blood Negative, Urine Nitrite Negative, Urine Bilirubin Negative, Urine Urobilinogen Normal, Ur Leukocyte Esterase 25 H, Urine RBC 0 SEEN, Urine WBC 0 SEEN, Ur Squamous Epith Cells 0 SEEN, Urine Bacteria 0 SEEN, Urine Mucus 0 SEEN 05/20/21 16:30: Lactic Acid 0.7 Micro: Microbiology 05/20/21 10:35 Nasal Secretion SARS-CoV-2 Antigen (Rapid) - Final Radiology Impression Abdomen/Pelvis CT 05/20/21 10:21 IMPRESSION: Mildly dilated and stool-filled cecum within the left abdomen with an appearance suggestive of a cecal bascule. New patchy opacities within the left lower lobe associated with bilateral lower lobe groundglass opacities may reflect pneumonia. Colonic diverticulosis. Electronically Signed: Nina Rios MD at 13:41 EST Tel , Service support , Chest X-Ray 05/20/21 10:21 IMPRESSION: Normal x-ray examination of the chest. Electronically Signed: Ania Beth MD at 11:30 EST Tel , Service support , Assessment & Plan Assessment/Plan (1) Constipation: PLAN: This is a 55-year-old female who has a chronic history of constipation. Her normal bowel frequency is 1 bowel movement every other day while taking fiber supplements religiously. She has many radiographic examples of redundant colon as a result. I have stressed to her the need to consider promotility agents when faced with significant constipation and shared with her reasons for holding off fiber supplementation once she is gone more than a couple days without a bowel movement. When asked for more specific recommendations, I have advised her to begin 1 capful of MiraLAX daily, but increase this dose until she is able to achieve 1 soft bowel movement daily. I have also stressed to her the need to ensure she is up-to-date with her surveillance colonoscopies. She expresses understanding of this information and willingness to incorporate it. (2) Abdominal pain in female: PLAN: This is a 55-year-old female who presented with a 4-week history of abdominal pain that is progressed more over the past several days and had CT imaging showing concern for possible cecal bascule. In my independent review of the imaging, I do find an abnormal position of the cecum?overlying the area of the sigmoid colon. However, I do not see evidence of acute inflammation in the vicinity of the cecum either in the mesocolon or the colonic wall. Furthermore, I do not see evidence of any swirling of the mesentery to suggest a volvulus event. Significantly, there is evidence that the patient's colon has assumed this position over many years. In fact, our earliest imaging available in this EMR dates back to 2006 and at that time the patient had an abnormal medial lie of her cecum. Given these observations, and the patient's rather benign abdominal exam, I made contact with the reporting radiologist, Dr. Coburn, on the CT exam. Radiology confirmed the patient's imaging is very similar to that which was obtained in 2019 and also confirmed they did not see any evidence of bowel compromise or mesenteric swirl sign. Lastly, in search of more objective evidence against any acute change I obtained a lactic acid on the patient which came back well within the range of normal at 0.7. These observations were taken back to the patient and her where she was then reexamined as well. Abdominal exam did not change and and Mrs. Everett expressed understanding/appreciation for this information. Mrs. Everett remains tachycardic and febrile, and I do not have a explanation for this based on what is seen on her CT of the abdomen. It is possible these are related to a concurrent upper respiratory tract infection based on the other symptoms she describes. I shared with her that we could consider either an overnight observation or discharged to home with return precautions. They favor the latter and commit to changes with the patient's bowel regimen. This plan was also discussed with emergency medicine who is in agreement. Charges/Coding Visit Charges Inpatient E&M: 74559 Init Hosp L2
[2021-05-20] MEDS: Acetaminophen 500 MG Tablet 1000 MG PO (17:28)
== END 2021-05-20 17:32 | disposition home or self-care (01) ==
PROVIDERS: Emergency Provider Emergency Medicine; PCP Family Medicine
DX: K59.00 Constipation, unspecified (principal); R10.12 Left upper quadrant pain; R10.32 Left lower quadrant pain; R50.9 Fever, unspecified
CPT/HCPCS: 71045; 74177; 80053; 81001; 83605; 83690; 85025; 87426; 96361; 96374; 96375; 96376; 99284; J7030; Q9967; A4216; J2405

== ENCOUNTER 2021-08-27 09:13 | Outpatient (CLI) | payer OTHER, SELFPAY ==
[2021-08-27 10:12] LABS: Erythrocyte Sedimentation Rate 14 mm/hr (0-30)
[2021-08-27 10:21] LABS: Anion Gap 4 (5-15); BUN 18 mg/dL (7-18); BUN/Creat Ratio 25.5 RATIO (10-20); Calcium,Total 9.1 mg/dL (8.5-10.1); Chloride 104 mmol/L (98-107); Cholesterol 247 mg/dL (200); Creatinine, Serum 0.71 mg/dL (0.55-1.02); EST Glomerular Filtration Rate 91 mL/min (>60); Est Glom Filt Rate - Afr Amer 110 mL/min (>60); Glucose 103 mg/dL (74-106); High Density Lipoprotein 77 mg/dL; Potassium 4.2 mmol/L (3.5-5.1); Sodium Level 138 mmol/L (136-145); Triglycerides 95 mg/dL; Very Low Density Lipoprotein 19 mg/dL (5-40)
[2021-08-27 10:37] LABS: Vitamin D,25 Hydroxy 44.8 ng/mL
[2021-08-27 14:26] LABS: T4 Free Direct 0.86 ng/dL (0.76-1.46)
== END 2021-08-27 23:59 | disposition home or self-care (01) ==
LOC: MFPLAB 09:13
PROVIDERS: PCP Family Medicine; Visit Provider Family Medicine
DX: E03.9 Hypothyroidism, unspecified (principal); L40.50 Arthropathic psoriasis, unspecified; Z13.220 Encounter for screening for lipoid disorders
CPT/HCPCS: 36415; 80048; 80061; 82306; 84439; 84443; 85652

== ENCOUNTER → 2022-04-23 | Outpatient (CLI) | payer OTHER, SELFPAY | END | disposition home or self-care (01) | LOC: LABSPEC 13:42 | PROVIDERS: PCP Family Medicine; Visit Provider Family Medicine | DX: N39.0 Urinary tract infection, site not specified (principal) | CPT/HCPCS: 87086; 87088 ==

== ENCOUNTER → 2022-06-10 | Outpatient (CLI) | payer OTHER, SELFPAY ==
[2022-06-10 15:24] LABS: Erythrocyte Sedimentation Rate 16 mm/hr (0-30)
[2022-06-10 15:25] LABS: Absolute Lymphocyte Count 1.42 X10^3/uL (0.83-4.51); Absolute Neutrophil Count 3.2 X10^3/uL (2.0-7.7); Basophil# 0.05 X10^3/uL; Basophil% 0.9 % (0-1); Eosinophil# 0.21 X10^3/uL; Eosinophils% 3.9 % (0-5); Hematocrit 39.6 % (37-47); Lymphocyte # 1.42 X10^3/ul (0.83-4.51); Lymphocyte % 26.3 % (19-41); Mean Corp Hgb Conc 32.8 g/dL (32-36); Mean Corpuscular Hgb 31.7 pg (27.0-32.0); Mean Corpuscular Volume 96.6 fL (81-99); Mean Platelet Vol. 10.7 fl (6.2-12.0); Monocyte# 0.55 X10^3/uL; Monocyte% 10.2 % (0-10); NRBC Flagged by Analyzer 0 % (0-5); Neutrophil # 3.16 X10^3/uL (2.7-7.7); Neutrophil % 58.5 % (47-70); Platelet Count 281 K/mm3 (150-450); RBC Distribution Width CV 12.3 % (11.6-14.6); RBC Distribution Width SD 43.5 fl (35.1-43.9); White Blood Count 5.4 K/mm3 (4.4-11.0)
[2022-06-10 15:37] LABS: Vitamin B12 366 pg/mL (211-911); Vitamin D,25 Hydroxy 39.8 ng/mL
[2022-06-10 15:45] LABS: ALB/GLOB Ratio 1.2 RATIO (0.9-2.4); AST(SGOT) 5 U/L (15-37); Alanine Aminotransfer ALT/SGPT 21 U/L (13-56); Alkaline Phosphatase 64 U/L (45-117); Anion Gap 9 (5-15); BUN 26 mg/dL (7-18); BUN/Creat Ratio 38.9 RATIO (10-20); Calcium,Total 9.4 mg/dL (8.5-10.1); Chloride 105 mmol/L (98-107); Creatinine, Serum 0.67 mg/dL (0.55-1.02); EST Glomerular Filtration Rate 96 mL/min (>60); Est Glom Filt Rate - Afr Amer 116 mL/min (>60); Ferritin 34 ng/mL (8-252); Free T3 2.5 pg/mL (2.18-3.98); Globulin 3.4 g/dL (2.2-4.2); Glucose 97 mg/dL (74-106); Iron 76 ug/dL (50-170); Potassium 4.2 mmol/L (3.5-5.1); Protein, Total 7.4 g/dL (6.4-8.2); Sodium Level 142 mmol/L (136-145); T4 Free Direct 0.87 ng/dL (0.76-1.46); Thyroid Stim Hormone (TSH) 3.35 uIU/mL (0.358-3.74)
== END | disposition home or self-care (01) ==
PROVIDERS: PCP Family Medicine; Referring Provider Family Medicine; Visit Provider Family Medicine
DX: E03.9 Hypothyroidism, unspecified (principal); R53.83 Other fatigue
CPT/HCPCS: 36415; 80053; 82306; 82533; 82607; 82728; 83540; 84439; 84443; 84481; 85025; 85652

== ENCOUNTER → 2022-08-29 | Outpatient (CLI) | payer OTHER, SELFPAY ==
[2022-08-29 12:19] LABS: Absolute Neutrophil Count 2.9 X10^3/uL (2.0-7.7); Basophil# 0.04 X10^3/uL; Basophil% 0.8 % (0-1); Eosinophil# 0.13 X10^3/uL; Eosinophils% 2.7 % (0-5); Hemoglobin 12.8 g/dL (12.0-15.0); Lymphocyte % 26.9 % (19-41); Mean Corp Hgb Conc 32.8 g/dL (32-36); Mean Corpuscular Hgb 31.5 pg (27.0-32.0); Mean Corpuscular Volume 96.1 fL (81-99); Mean Platelet Vol. 10.2 fl (6.2-12.0); Monocyte# 0.49 X10^3/uL; Monocyte% 10.1 % (0-10); NRBC Flagged by Analyzer 0 % (0-5); Neutrophil # 2.86 X10^3/uL (2.7-7.7); Neutrophil % 59.3 % (47-70); Platelet Count 268 K/mm3 (150-450); RBC Distribution Width CV 12.9 % (11.6-14.6); RBC Distribution Width SD 45.9 fl (35.1-43.9); Red Blood Count 4.06 M/mm3 (4.2-5.4); White Blood Count 4.8 K/mm3 (4.4-11.0)
[2022-08-29 12:33] LABS: Erythrocyte Sedimentation Rate 17 mm/hr (0-30)
[2022-08-29 12:57] LABS: Vitamin B12 702 pg/mL (211-911); Vitamin D,25 Hydroxy 38.8 ng/mL
[2022-08-29 13:09] LABS: ALB/GLOB Ratio 1.1 RATIO (0.9-2.4); AST(SGOT) 19 U/L (15-37); Alanine Aminotransfer ALT/SGPT 34 U/L (13-56); Albumin, Serum 3.9 g/dL (3.2-5.0); Alkaline Phosphatase 71 U/L (45-117); Anion Gap 6 (5-15); BUN 29 mg/dL (7-18); CRP 3.64 mg/L (0.0-3.0); Calcium,Total 9.1 mg/dL (8.5-10.1); Chloride 107 mmol/L (98-107); Creatinine, Serum 0.64 mg/dL (0.55-1.02); EST Glomerular Filtration Rate 100 mL/min (>60); Est Glom Filt Rate - Afr Amer 121 mL/min (>60); Free T3 2.4 pg/mL (2.18-3.98); Globulin 3.5 g/dL (2.2-4.2); Glucose 90 mg/dL (74-106); Potassium 3.8 mmol/L (3.5-5.1); Protein, Total 7.4 g/dL (6.4-8.2); Rheumatoid Factor < 10.0 IU/mL (<15); Sodium Level 139 mmol/L (136-145); T4 Free Direct 0.86 ng/dL (0.76-1.46); Thyroid Stim Hormone (TSH) 3.15 uIU/mL (0.358-3.74)
[2022-08-30 14:08] LABS: PROEL- A/G Ratio 1.2 (0.7-1.7); PROEL- Albumin 3.8 g/dL (2.9-4.4); PROEL- Alpha-1 Globulin 0.3 g/dL (0.0-0.4); PROEL- Alpha-2 Globulin 0.8 g/dL (0.4-1.0); PROEL- Beta Globulin 1.1 g/dL (0.7-1.3); PROEL- Globulin, Total 3.2 g/dL (2.2-3.9)
[2022-08-30 14:57] LABS: ANTINUCLEAR ANTIBODIES DIRECT Negative (Negative)
== END | disposition home or self-care (01) ==
LOC: MFPLAB 09:22
PROVIDERS: PCP Family Medicine; Referring Provider Family Medicine; Visit Provider Family Medicine
DX: R53.83 Other fatigue (principal); L40.50 Arthropathic psoriasis, unspecified
CPT/HCPCS: 36415; 80053; 82306; 82607; 84165; 84439; 84443; 84481; 85025; 85652; 86038; 86140; 86225; 86235; 86431

== ENCOUNTER → 2022-09-11 | Outpatient (CLI) | payer OTHER, SELFPAY ==
--- NOTE | 2022-09-11 09:51 | BI_ITS ---
MAMMOGRAPHY - BILATERAL SCREENING 3-D TOMOSYNTHESIS REASON FOR EXAM: Female, 57 years old. Routine screening PERTINENT HISTORY: No significant family history. TECHNIQUE: 2-D mammograms and 3-D Tomosynthesis of the breast (s) were performed. CAD was performed. COMPARISON: 2019 FINDINGS: The breast composition is composed of scattered fibroglandular density. Scattered benign calcifications are seen. No dense spiculated masses or suspicious microcalcifications are identified. No architectural distortion is identified. There is no skin thickening or retraction. There has been no significant change since the prior study. BI/SCRN MAMM (CAD)W/DEJON BILAT IMPRESSION: No mammographic signs of malignancy. Routine yearly mammograms recommended. ASSESSMENT CATEGORY: BIRADS Category 1: Negative. A letter regarding these results will be sent to the patient by the facility within 30 days. FOLLOW UP RECOMMENDATION: Yearly follow up mammogram recommended. (A) Approximately 10% of breast cancers are not detected by mammography. A normal mammogram should not delay biopsy of a clinically suspicious abnormality. Electronically Signed: Hugo Kuo MD at 10:58 EDT ,
--- NOTE | 2022-09-11 10:03 | BD_ITS ---
STUDY: DUAL ENERGY X-RAY ABSORPTIOMETRY / DXA REASON FOR EXAM: Female, 57 years old. SCREENING TECHNIQUE: Bone Mineral Density (BMD) measurements of lumbar spine and bilateral hips were obtained. COMPARISON: None. FINDINGS: Lumbar Spine (L1-L4): g/cm2 (0.724) / T-score (-2.7) / Z-score (-1.4) Findings are suggestive of osteoporosis with a high fracture risk. Left Femur Total: g/cm2 (0.758) / T-score (-1.5) / Z-score (-0.6) Left Femoral Neck: g/cm2 (0.681) / T-score (-1.5) / Z-score (-0.3) Right Femur Total: g/cm2 (0.791) / T-score (-1.2) / Z-score (-0.3) Right Femoral Neck: g/cm2 (0.656) / T-score (-1.7) / Z-score (-0.5) BD/Dexa Bone Density Study IMPRESSION: The patient is considered osteoporotic as outlined below according to World Price Organization (WHO) criteria with a high fracture risk. Reference Information: The T-score is the number of standard deviations above or below the standard which is normal for young adults at their peak bone mineral density. The World Health Organization (WHO) interprets the T-scores as follows: Above -1 Normal bone density Between -1 and -2.5 Osteopenia Equal to / or below -2.5 Osteoporosis As a practical clinical guideline, osteopenia may be graded as follows: Mild -1 through -1.5 Moderate -1.6 through -2.0 Severe -2.1 through -2.4 The Z-score is the number of standard deviations above or below age-matched controls. A Z-score of less than -1.5 would be considered abnormal. References: 1. NIH Osteoporosis and Related Bone Diseases www osteo.org 2. International Society for Clinical Densitometry www iscd.org 3. National Osteoporosis Foundation www nof.org Electronically Signed: Cole King MD at 12:03 EDT ,
== END | disposition home or self-care (01) ==
PROVIDERS: PCP Family Medicine; Referring Provider Family Medicine; Visit Provider Family Medicine
DX: M81.0 Age-related osteoporosis without current pathological fracture (principal); Z12.31 Encounter for screening mammogram for malignant neoplasm of breast
CPT/HCPCS: 77063; 77067; 77080

== ENCOUNTER → 2022-09-19 | Outpatient (CLI) | payer OTHER, SELFPAY ==
[2022-09-19 09:58] LABS: Color, Urine Yellow (Yellow); Glucose, Dipstick Normal (Normal); Ketone-Dipstick 5 mg/dl (Negative); Leukocyte Esterase-Dipstick Negative /ul (Negative); Nitrite-Dipstick Negative (Negative); Occult Blood-Urine Negative /ul (Negative); Protein-Dipstick Negative (Negative); Urine Bilirubin Dipstick Negative (Negative); Urine Clarity Clear (Clear); Urine Urobilinogen Normal (Normal)
[2022-09-19 10:23] LABS: Anion Gap 4 (5-15); BUN 21 mg/dL (7-18); BUN/Creat Ratio 29.4 RATIO (10-20); Calcium,Total 9.2 mg/dL (8.5-10.1); Chloride 106 mmol/L (98-107); Creatinine, Serum 0.72 mg/dL (0.55-1.02); EST Glomerular Filtration Rate 89 mL/min (>60); Est Glom Filt Rate - Afr Amer 108 mL/min (>60); Glucose 89 mg/dL (74-106); Magnesium 2.1 mg/dL (1.6-2.6); Phosphorus 3.3 mg/dL (2.5-4.9); Potassium 3.8 mmol/L (3.5-5.1); Sodium Level 139 mmol/L (136-145)
[2022-09-19 10:27] LABS: PTHIN 32.4 pg/mL (18.4-80.1)
[2022-09-20 14:29] LABS: T4 Free Direct 1.05 ng/dL (0.76-1.46)
== END | disposition home or self-care (01) ==
LOC: MTLAB 07:06
PROVIDERS: PCP Family Medicine; Referring Provider Family Medicine; Visit Provider Family Medicine
DX: Z00.00 Encounter for general adult medical examination without abnormal findings (principal); R79.89 Other specified abnormal findings of blood chemistry; E03.9 Hypothyroidism, unspecified; M81.0 Age-related osteoporosis without current pathological fracture
CPT/HCPCS: 36415; 80048; 81002; 82330; 83735; 83970; 84100; 84439; 84443

== ENCOUNTER 2022-09-21 06:28 | Emergency (ER) | payer OTHER, SELFPAY ==
[2022-09-21 06:29] VITALS: BP 139/84; PULSE 108; RESP 18; TEMP 36.7; O2SAT 99; BMI 27.5
--- NOTE | 2022-09-21 07:07 | CT_ITS ---
STUDY: CT ABDOMEN AND PELVIS WITH CONTRAST - URINARY TRACT REASON FOR EXAM: Female, 57 years old. Left lower quadrant abdominal pain RADIATION DOSAGE (If Supplied By Facility): CTDIvol = ( 11.98 ) mGy, DLP = ( 679.77 ) mGycm TECHNIQUE: IV 100mL [id number]-[id number] was administered. Transaxial images were obtained from the dome of the diaphragm to the symphysis pubis subsequent to intravenous contrast administration. Multiplanar coronal and sagittal images were reformatted. Individualized Dose Optimization Techniques Were Used For This CT. COMPARISON: May 20, 2021 FINDINGS: The visualized lung bases are unremarkable. The visualized portions of the heart are within normal limits. There are two stable rounded low-attenuation foci within the liver which may reflect cysts or hemangiomas. Normal gallbladder and extrahepatic biliary system. Normal spleen. Normal pancreas. Normal bilateral adrenal glands. Normal visualized stomach. Normal small intestine. There is diverticulosis, with thickening of the sigmoid colon wall, and pericolonic inflammation changes consistent with acute diverticulitis. There is minimal associated free fluid within the pelvis. The appendix is visualized and appears normal. Normal abdominal aorta. No retroperitoneal adenopathy. There is a stable right-sided extrarenal pelvis. Normal left kidney. Normal urinary bladder. Normal abdominal wall. There are diffuse degenerative changes of the visualized lumbar spine. CT/Abdomen/Pelvis W IV Cont ONLY IMPRESSION: Acute diverticulitis of the sigmoid colon. Electronically Signed: Nina Rios MD at 8:27 EDT ,
--- NOTE | 2022-09-21 07:08 | ED.VIS.GI ---
HPI HPI - GI History of Present Illness Chief Complaint: Abd Pain Informant: patient Abdominal Pain/Flank Pain Onset: Days Context: Gradual Onset Timing: Continuous Location: LLQ Current Severity: Moderate Maximum Severity: Moderate Worsened by: Nothing Relieved by: Nothing Nausea/Vomiting/Emesis GI Symptom: Positive for Nausea Onset: Days Severity: Mild Diarrhea/Melena/Hematochezia GI Symptom: Negative for Diarrhea, Melena or Hematochezia Associated Symptoms Associated Symptoms: Negative for Dysuria, Frequency or Hematuria Narrative Narrative: 57-year-old female history of prior diverticulitis, kidney stones and a prior hysterectomy. States on Friday started having left lower quadrant abdominal pain that is progressively gotten worse. Low-grade fever of 99. Nausea without vomiting. No diarrhea constipation. No dysuria. Prior similar symptoms: Yes Recent Illness/Hospitalization: No PFSH PFSH Medical History Abdominal pain Diverticulitis History of kidney stones Nausea Osteoporosis Rheumatoid arthritis Home Medications ibuprofen 200 mg capsule (Advil Liqui-Gel) 600 mg PO DAILY 05/28/21 [History Last Taken Unknown] amoxicillin 875 mg-potassium clavulanate 125 mg tablet 1 tab PO BID 10 days #20 tabs 09/21/22 [Rx Last Taken Unknown] oxycodone-acetaminophen 5 mg-325 mg tablet (Percocet) 1 tab PO Q8H PRN pain 4 days #20 tabs 09/21/22 [Rx Last Taken Unknown] Allergy/AdvReac Type Severity Reaction Status Date / Time codeine Allergy Itching Verified 09/21/22 06:32 meloxicam [From Mobic] Allergy Hives Verified 09/21/22 06:32 azithromycin AdvReac decrease Verified 09/21/22 06:32 [From Zithromax Z-Ahsan] in urine production, vomiting ciprofloxacin AdvReac Nausea Verified 09/21/22 06:32 nitrofurantoin AdvReac Nausea Verified 09/21/22 06:32 [From Macrobid] nitrofurantoin AdvReac Nausea Verified 09/21/22 06:32 macrocrystalline [From Macrobid] Family History Father Diabetes Heart disease Kidney disease Surgical History History of endometrial ablation History of hysterectomy Social History Smoking Status: Never smoker alcohol intake: current substance use type: does not use ROS ROS ED ROS Narrative Nausea and left lower quadrant abdominal pain. Review of Systems ROS Unobtainable: Denies due to encephalopathy Constitutional Constitutional ED: Reports fever(s) and subjective ENT ENT ED: Denies ear pain Cardiovascular Cardiovascular: Denies chest pain Respiratory/Chest Respiratory/Chest: Denies cough Gastrointestinal Gastrointestinal: Reports abdominal pain and nausea; Denies constipation, diarrhea, melena or vomiting Genitourinary Genitourinary ED: Denies dysuria or hematuria Musculoskeletal Musculoskeletal: Denies arthralgias Integumentary Denies abscess Neurologic Neurologic: Denies headache(s) Psychiatric Psychiatric: Denies anxiety Endocrine Endocrinology: Denies polydipsia or polyphagia Hematologic/Lymphatic Hematologic/Lymphatic: Denies easy bleeding Allergic/Immunologic Allergic/Immunologic ED: Denies mouth swelling EXAM Physical Exam Narrative Exam Narrative: 57-year-old female no acute distress. Vital signs stable afebrile. HEENT exam rhythm. Abdomen soft, nondistended, normal bowel sounds without peritoneal signs. Tenderness in the left lower quadrant only. No hernia or mass. No signs of obstruction. No McBurney's point tenderness. Back nontender. Moving all 4 extremities. Nontender no edema. Neurologically she is awake and alert with no focal motor deficits. Const Vital Signs: 09/21/22 06:29 Temperature 98.0 F Temperature Source Temporal Pulse Rate 108 H Respiratory Rate 18 Blood Pressure 139/84 H Blood Pressure Mean 102 Pulse Ox 99 Oxygen Delivery Method Room Air Positive well nourished and well developed; Negative for obese, cachectic, contractures or unkempt General Appearance ED: well developed and NAD; Negative for unkempt, cachectic, contractures or pallor Nutritional Appearance: Negative for cachectic or obese HEENT Reports moist mucous membranes normocephalic and atraumatic; Negative for trauma or tenderness Eyes PERRL and EOMs intact bilaterally General Eye ED: Negative for pale conjunctiva or scleral icterus Neck no lymphadenopathy, supple and no JVD General: Negative for tenderness Lymph Lymphatic: Negative for other Resp normal respiratory effort and clear to auscultation bilaterally Effort and Inspection: Negative for respiratory distress Auscultation: Negative for rales, rhonchi or wheezes Cardio regular rate, regular rhythm, S1 normal heart sound, S2 normal heart sound and no murmurs Rate: Negative for bradycardia or tachycardic GI non-distended and no masses; Negative for non-tender GI Narrative: Left lower quadrant tenderness only. Inspection: Negative for abdominal distention Auscultation: normoactive bowel sounds Palpation: soft and tender; Negative for guarding, rigid, hepatomegaly, splenomegaly, hernia, mass, pulsatile mass or rebound tenderness present Back/Spine no CVA tenderness Extremity full ROM General Extremety ED: Negative for edema or tenderness General Extremity: Negative for edema Neuro CN's II-XII intact bilaterally and moves all extremities Sensorium / Orientation: alert, oriented to person, oriented to place and oriented to time; Negative for orientation impaired or confused Motor Exam: strength 5/5 throughout Psych mental status grossly normal and thought process normal Appearance: Negative for unkempt Attitude: No agitated Mood & Affect: Negative for depressed, anxious or tearful Skin no wounds General Skin Exam: Negative for jaundice or pallor Lesions: no lesions Rashes: no rashes Trauma: Negative for abrasion Nails: Negative for discolored MDM MDM MDM Narrative Medical decision making narrative: 57-year-old female left lower quadrant abdominal pain. Suspicious for diverticulitis. Consider UTI. Versus other etiologies. CAT scan labs being obtained. Treated with IV fluids, Zofran for nausea and morphine for pain. Repeat exam at 7:40 AM patient's pain is improved with the pain medication. Awaiting lab results and CAT scan. Patient doing well at 8:40 AM. I discussed all of her test results including her CAT scan with her and her . Placed on Augmentin 875 twice daily for 10 days. Percocet for pain. Outpatient follow-up with primary care physician. Currently she is doing well. History & Record Review Discussion w/independent historian: Patient and Family Lab Data Attestation: I reviewed the patient's lab results. Lab results narrative: CBC normal. White count 9.8. H&H 13.5 and 40. Platelets 269. CMP shows gap of 4. BUN 19 creatinine 1. Liver enzymes are unremarkable. Urinalysis is negative. CT abdomen pelvis shows sigmoid diverticulitis. Read by the radiologist and reviewed by me. Labs: Laboratory Results - last 24 hr 09/21/22 09/21/22 09/21/22 06:40 06:40 08:03 WBC 9.8 RBC 4.23 Hgb 13.5 Hct 40.2 MCV 95.0 MCH 31.9 MCHC 33.6 RDW Std Deviation 44.5 H RDW Coeff of Faisal 12.7 Plt Count 269 MPV 10.1 Immature Gran % (Auto) 0.700 Neut % (Auto) 79.4 H Lymph % (Auto) 9.9 L Harnett % (Auto) 8.4 Eos % (Auto) 1.1 Baso % (Auto) 0.5 Absolute Neuts (auto) 7.8 H Absolute Lymphs (auto) 0.97 Nucleated RBC % 0 Sodium 137 Potassium 4.0 Chloride 105 Carbon Dioxide 28.0 Anion Gap 4 L BUN 19 H Creatinine 0.70 Estim Creat Clear Calc 71.58 Est GFR (MDRD) Af Amer 110 Est GFR (MDRD) Non-Af 91 BUN/Creatinine Ratio 27.2 H Glucose 104 Calcium 9.5 Total Bilirubin 0.40 AST 16 ALT 29 Alkaline Phosphatase 88 Total Protein 7.7 Albumin 3.7 Globulin 4.0 Albumin/Globulin Ratio 0.9 Urine Color Yellow Urine Clarity Clear Urine pH 6.0 Ur Specific [place] 1.010 Urine Protein Negative Urine Glucose (UA) Normal Urine Ketones 15 H Urine Occult Blood Negative Urine Nitrite Negative Urine Bilirubin Negative Urine Urobilinogen Normal Ur Leukocyte Esterase Negative Urine RBC 0 SEEN Urine WBC 0 SEEN Ur Squamous Epith Cells 0-5 SEEN Urine Bacteria 0 SEEN Urine Mucus 0 SEEN Radiography Diagnostic Testing: Clinical Impression(s) from Imaging Studies Abdomen/Pelvis CT 09/21/22 07:07 IMPRESSION: Acute diverticulitis of the sigmoid colon. Electronically Signed: Nina Rios MD at 8:27 EDT , Discharge Plan Triage Chief Complaint: Abd Pain ED Provider: Heath Palmer Dx/Rx/DC Orders Clinical Impression: Diverticulitis Instructions: ED Diverticulitis Prescriptions: New amoxicillin-pot clavulanate 875-125 mg tablet 1 tab PO BID 10 Days Qty: 20 0RF oxycodone-acetaminophen [Percocet] 5-325 mg tablet 1 tab PO Q8H PRN (Reason: pain) 4 Days Qty: 20 0RF No Action ibuprofen [Advil Liqui-Gel] 200 mg capsule 600 mg PO DAILY Primary Care Provider: Art Castaneda Referrals: Art Castaneda MD [Primary Care Provider] - 1 Week Activity Restrictions/Additional Instructions: Motrin and Tylenol for pain. The antibiotic Augmentin 1 pill twice a day for 10 days. Follow-up with your doctor to ensure you are improving. Return if increasing pain or you are overall feeling worse. Disposition Disposition: Home, Self Care
[2022-09-21] MEDS: 0.9% Normal Saline 1,000 ML 1000 ML IV (07:26)
[2022-09-21] MEDS: Ondansetron 4 MG/2 ML Vial IV (07:27)
[2022-09-21] MEDS: morphine 8 MG/ML Syringe IV (07:28)
[2022-09-21 07:33] LABS: Absolute Lymphocyte Count 0.97 X10^3/uL (0.83-4.51); Absolute Neutrophil Count 7.8 X10^3/uL (2.0-7.7); Basophil# 0.05 X10^3/uL; Basophil% 0.5 % (0-1); Eosinophil# 0.11 X10^3/uL; Eosinophils% 1.1 % (0-5); Hematocrit 40.2 % (37-47); Hemoglobin 13.5 g/dL (12.0-15.0); Lymphocyte # 0.97 X10^3/ul (0.83-4.51); Lymphocyte % 9.9 % (19-41); Mean Corp Hgb Conc 33.6 g/dL (32-36); Mean Corpuscular Hgb 31.9 pg (27.0-32.0); Mean Platelet Vol. 10.1 fl (6.2-12.0); Monocyte# 0.82 X10^3/uL; Monocyte% 8.4 % (0-10); NRBC Flagged by Analyzer 0 % (0-5); Neutrophil # 7.76 X10^3/uL (2.7-7.7); Neutrophil % 79.4 % (47-70); Platelet Count 269 K/mm3 (150-450); RBC Distribution Width CV 12.7 % (11.6-14.6); RBC Distribution Width SD 44.5 fl (35.1-43.9); Red Blood Count 4.23 M/mm3 (4.2-5.4); White Blood Count 9.8 K/mm3 (4.4-11.0)
[2022-09-21 07:41] LABS: ALB/GLOB Ratio 0.9 RATIO (0.9-2.4); AST(SGOT) 16 U/L (15-37); Alanine Aminotransfer ALT/SGPT 29 U/L (13-56); Albumin, Serum 3.7 g/dL (3.2-5.0); Alkaline Phosphatase 88 U/L (45-117); Anion Gap 4 (5-15); BUN 19 mg/dL (7-18); BUN/Creat Ratio 27.2 RATIO (10-20); Calcium,Total 9.5 mg/dL (8.5-10.1); Chloride 105 mmol/L (98-107); EST Glomerular Filtration Rate 91 mL/min (>60); Est Glom Filt Rate - Afr Amer 110 mL/min (>60); Estimated Creatinine Clearance 71.58 ml/min; Glucose 104 mg/dL (74-106); Protein, Total 7.7 g/dL (6.4-8.2); Sodium Level 137 mmol/L (136-145)
[2022-09-21 08:11] LABS: Bacteria 0 SEEN /hpf (None Seen); Mucous, Urine 0 SEEN /hpf (<or=2+); Red Blood Cells-Urine 0 SEEN /hpf (0-5); White Blood Cells 0 SEEN /hpf (0-5)
[2022-09-21 08:12] LABS: Color, Urine Yellow (Yellow); Glucose, Dipstick Normal (Normal); Ketone-Dipstick 15 mg/dl (Negative); Leukocyte Esterase-Dipstick Negative /ul (Negative); Nitrite-Dipstick Negative (Negative); Occult Blood-Urine Negative /ul (Negative); Protein-Dipstick Negative (Negative); Urine Bilirubin Dipstick Negative (Negative); Urine Clarity Clear (Clear); Urine Urobilinogen Normal (Normal)
[2022-09-21 08:35] LABS: Squamous Epithelial Cells - UA 0-5 SEEN /hpf (5-10)
[2022-09-21 08:58] VITALS: RESP 16
== END 2022-09-21 09:00 | disposition home or self-care (01) ==
PROVIDERS: Emergency Provider Emergency Medicine; PCP Family Medicine; Visit Provider Emergency Medicine
DX: K57.32 Diverticulitis of large intestine without perforation or abscess without bleeding (principal)
CPT/HCPCS: 74177; 80053; 81001; 85025; 96361; 96374; 96375; 99283; J7030; Q9967; A4216; J2405

== ENCOUNTER → 2022-10-21 | Outpatient (CLI) | payer OTHER, SELFPAY ==
--- NOTE | 2022-10-21 06:43 | CT_ITS ---
INDICATION: Left lower quadrant pain, history of diverticulitis 1 month ago. Multiple rounds of antibiotics. EXAMINATION: CT Abdomen And Pelvis W/ Contrast Injection TECHNIQUE: Helically acquired images were obtained of the abdomen and pelvis following IV contrast. 2-D reconstructions reviewed. A radiation dose optimization technique was used for this scan. IV Contrast dosage and agent: 100 cc Isovue-300 Oral contrast: Yes COMPARISON: Contrast-enhanced CT abdomen and pelvis from 09/21/2022 FINDINGS: LOWER CHEST: No acute findings within the imaged lung bases. Heart size within normal limits. LIVER: Couple of simple appearing hepatic cysts again noted, requiring no additional follow-up. Largest cyst located within right lobe of liver measures 1.5 cm. No concerning lesion. GALLBLADDER AND BILIARY TREE: No calcified gallstones identified. No gallbladder wall edema demonstrated. No significant biliary ductal dilation. PANCREAS: No discrete mass or peripancreatic edema. SPLEEN: Normal size without focal cystic or solid mass. ADRENAL GLANDS: Unremarkable. KIDNEYS AND URETERS: Normal renal size and position. No perinephric edema or hydronephrosis. No concerning lesion. PERITONEUM: No significant free fluid. No peritoneal free air or abscess detected. RETROPERITONEUM: No retroperitoneal mass or pathologic fluid collection. BOWEL: Cecum projects into midline lower abdomen with normal appendix projecting into right lower quadrant. No volvulus. No bowel obstruction. Colonic diverticulosis again noted. There is minimal residual thickening of diverticulum along proximal sigmoid colon but no appreciable pericolonic fat stranding (series 2 axial image 88). LYMPH NODES: No enlarged mesenteric or retroperitoneal lymph nodes. VESSELS: No acute findings. No abdominal aortic aneurysm. URINARY BLADDER: Unremarkable as visualized. REPRODUCTIVE ORGANS: Status post partial hysterectomy. No pelvic mass. ABDOMINAL WALL: No acute findings or significant hernia defect. BONES: Intact with no suspicious osseous lesion. CT/Abdomen/Pelvis WITH Contrast IMPRESSION: Near complete resolution of previous diverticulitis with solitary slightly thickened remaining diverticulum along proximal sigmoid colon but no secondary complication. Electronically Signed: Isidro Venegas MD at 7:35 EDT ,
== END | disposition home or self-care (01) ==
LOC: CT 06:40
PROVIDERS: PCP Family Medicine; Referring Provider Family Medicine; Visit Provider Family Medicine
DX: K57.92 Diverticulitis of intestine, part unspecified, without perforation or abscess without bleeding (principal)
CPT/HCPCS: 74177; Q9967; A4216

== ENCOUNTER 2022-11-29 09:05 | Day surgery (SDC) | payer OTHER, SELFPAY ==
[2022-11-29] VITALS (7 sets, daily range): BP systolic 112–140; BP diastolic 64–106; PULSE 74–89; RESP 16–18; TEMP 36.1–36.6; O2SAT 97–100
--- NOTE | 2022-11-29 | IMM_PTH ---
PATIENT: AGUSTO HDZ LOC: [facility] U#:[id number] AGE/SX: 57/F ROOM: RE11/29/[address]: Dr. Titus Coelho MD : 1965 BED: DIS: 11/29/2022 SPEC #: [id number] RECD: 12/05/22 07:20 STATUS: LILY REQ #: [id number] CHRISTIANO: 11/29/22 00:[address]: Titus Coelho DEPT: IMMUNOHISTOCHEMISTRY RECD BY: Mariah Johnson ENTERED: 12/05/22 07:22 SP TYPE: IMMUNO OTHR DR: Dr. Chris Castaneda MD Tissues: Rectum, NOS Procedures: SMA (add) DESMIN (add) P53 (add) Vimentin (add) SMM (add) Pankeratin (initial) CD68 (ADD) S-100 (add) PHYSICIAN & INSTITUTION [place] [id number] SPECIMEN INFORMATION: Tissue Source: Rectal fold Clinical Info: Diverticulitis Specimen Number: [id number] CPT code: 33993, 63285 x7 METHODOLOGY: Deparaffinized sections of prefer/formalin-fixed tissue or PAP/DQ stained slides are incubated with monoclonal/polyclonal antibodies/oligonucleotide probes. Localization is made via biotin free immunoperoxidase method. Appropriate controls are performed and reacted as expected. Results on target cell population are indicated in the following table: RESULTS: ANTIBODY / CLONE RESULT AE1-3 (AE1/AE3/PCK26) negative Vimentin (V9) positive CD68 (KP-1) negative Actin (1A4) negative Myosin (simms1) negative Desmin (CE-R-11) negative S-100 (4C4.9) negative P53 (DO-7) negative, null pattern These tests were developed and their performance characteristics determined by [facility]. They may not have been cleared or approved by the U.S. Food and Drug Administration. The FDA has determined that such clearance or approval is not necessary. The above immunohistochemical/dualISH markers are ordered and reviewed by the Pathologist. INTERPRETATION: Rectal fold, biopsy: No evidence of smooth muscle tumor/proliferation. AM:zev 12/05/2022
--- NOTE | 2022-11-29 | COLBX_PTH ---
PATIENT: AGUSTO HDZ [place] [facility] [place] U#:[id number] AGE/SX: 57/F ROOM: RE11/29/[address]: Dr. Titus Coelho MD : 1965 BED: DIS: 11/29/2022 SPEC #: [id number] RECD: 12/02/22 12:49 STATUS: LILY [place]ICO #: [id number] CHRISTIANO: 11/29/22 00:[address]: Titus Coelho DEPT: SURGICAL PATHOLOGY RECD BY: Robson Natarajan ENTERED: 12/02/22 12:50 SP TYPE: COLON BX OTHR DR: Dr. Chris Castaneda MD Tissues: Rectum, NOS Procedures: Surgery Specimen Level IV HEADER OPERATION: Colonoscopy (MAC), biopsy PRE-OP DIAGNOSIS: Diverticulitis TISSUE SUBMITTED: Rectal fold MICROSCOPIC DIAGNOSIS Rectal fold, biopsy: Focal mucosal denudation. No evidence of colitis. See comment. AM:zev 12/04/2022 COMMENT An epithelial neoplasm is not identified. Clinical correlation is suggested. Immunohistochemistry ([id number]) supports the above diagnosis. MICROSCOPIC DESCRIPTION Slides are reviewed. GROSS DESCRIPTION Received in fixative is one container labeled with the patient's name and designated rectal fold. The specimen consists of multiple irregular fragments of light hubbard soft tissue that in aggregate measure 0.8 x 0.6 x 0.1 cm. The specimen is totally submitted in one cassette. / ZIA:zev 12/02/2022 TC:5 CPT: 36392
[2022-11-29] MEDS: Lactated Ringers 1,000 ML 15 ML IV (09:34)
--- NOTE | 2022-11-29 10:55 | HP.PCM_ITS ---
History and Physical Date of Admission: 11/29/22 Date of Service: 11/05/22 MR#: [id number] Acct: [id number] Name: AGUSTO EVERETT Rep #: [id number] : 1965 Provider: Dr. Titus Coelho MD Age/Sex: 57/F Location: [facility] Status: Signed Intake Vital Signs 09/21/2305:29 11/05/2312:34 Height 5 ft 3 in 5 ft 4 in Weight: 155 lb 6.814 oz 153 lb BMI 27.5 26.2 BP 139/84 H 125/84 H Blood Pressure Location Lt radial Position Sitting Respiration 18 18 Pulse 108 H 84 Pulse Source Monitor Temp 98.0 F 97.7 F L Temp Source Temporal Temporal Pulse Oximetry (%) 99 Intake Visit Reasons: DIVERTICULITIS Chief Complaint: Diverticulitis f/u Dip Unit Operator Required: No Is patient in pain?: No Allergies codeine Allergy (Verified 11/05/22 13:36) Itchingmeloxicam [From Mobic] Allergy (Verified 11/05/22 13:36) Hivesazithromycin [From Zithromax Z-Ahsan] Adverse Reaction (Verified 11/05/22 13:36) decrease in urine production, vomitingciprofloxacin Adverse Reaction (Verified 11/05/22 13:36) Nauseanitrofurantoin [From Macrobid] Adverse Reaction (Verified 11/05/22 13:36) Nauseanitrofurantoin macrocrystalline [From Macrobid] Adverse Reaction (Verified 11/05/22 13:36) Nausea Medications ibuprofen 200 mg capsule (Advil Liqui-Gel) 600 mg PO DAILY 05/28/21 [History Confirmed 09/21/22] amoxicillin 875 mg-potassium clavulanate 125 mg tablet 1 tab PO BID 10 days #20 tabs 09/21/22 [Rx] oxycodone-acetaminophen 5 mg-325 mg tablet (Percocet) 1 tab PO Q8H PRN pain 4 days #20 tabs 09/21/22 [Rx] aspirin 81 mg tablet,delayed release (Adult Aspirin Regimen) 81 mg PO DAILY 11/05/22 [History Confirmed 11/05/22] calcium carbonate 200 mg calcium (500 mg) chewable tablet (Antacid (calcium carbonate)) 200 mg PO TID 11/05/22 [History Confirmed 11/05/22] cholecalciferol (vitamin D3) 50 mcg (2,000 unit) capsule 50 mcg PO DAILY 11/05/22 [History Confirmed 11/05/22] mecobalamin (vitamin B12) 1,000 mcg chewable tablet 1,000 mcg PO DAILY 11/05/22 [History Confirmed 11/05/22] ondansetron 4 mg disintegrating tablet 4 mg PO 11/05/22 [History Confirmed 11/05/22] pyridoxine (vitamin B6) 100 mg tablet 100 mg PO DAILY 11/05/22 [History Confirmed 11/05/22] tramadol 50 mg tablet 50 mg PO 11/05/22 [History Confirmed 11/05/22] vitamin K2 100 mcg capsule 100 mcg PO DAILY 11/05/22 [History Confirmed 11/05/22] [facility] Medical History (Updated 11/05/22 @ 18:[address] Titus Coelho MD) Abdominal pain Diverticulitis History of kidney stones Nausea Osteoporosis Rheumatoid arthritis Surgical History History of endometrial ablation History of hysterectomy Family History Father Diabetes Heart disease Kidney disease Social History Smoking Status: Never smoker alcohol intake: current substance use type: does not use HPI HPI HPI: Patient is a 57-year-old female who presents for need to schedule diagnostic colonoscopy secondary to history of diverticulitis. She is actually known to me from prior encounters through the emergency department on 05/28/2021 due to concerns for cecal bascule. Regarding this visit, they are referred for surgical consultation from Dr. Castaneda. Patient states that when she felt the most recent bout of diverticulitis, on she did not let it go as long and states it felt like an elephant was going to come out. She reports that she initially believed that she had pulled some stomach muscles after she had changed up her Pilates routine, but when things persisted she had her take her to the emergency department. She reports that she required 2 rounds of Augmentin x10 days each. She is happy to report that she no longer feels any abdominal discomfort and has not had any fevers or chills. Patient states that her last episode of diverticulitis was her first episode of diverticulitis and occurred at the age of 45. She reports that Dr. Marcelino performed a diagnostic colonoscopy following resolution of those symptoms. She believes that there was a colonoscopy several years prior to this colonoscopy as well. She denies any history of polyps and confirms reports of diverticulosis. Patient reports that she has been diligent with her adherence to a Mediterranean type diet. On this diet she experiences a bowel movement once daily. She has not noted any blood or straining. She also confirms eating yogurt each morning and lots of fruit. Patient was previously scheduled for colonoscopy but then felt ill with COVID and states that she was quite ill for a period of 10 days thereafter. When her constipation resolved she thought she might put off her colonoscopy a little while longer. But now with her recurrent diverticulitis she is inclined to proceed with colonoscopy. Patient has a family history of colitis in both her mother and maternal grandmother. She is not aware of any cancer diagnoses or inflammatory bowel disease diagnoses. The patient's weight is stable. The patient is not prescribed anticoagulants/blood thinners. Relevant prior abdominal surgical history includes: None Patient does have a history of a GERD diagnosis and is prescribed Nexium, however, she states that she has not had much trouble with reflux and will experience symptoms only maybe 1 time per month. When this happens symptoms are well controlled with a chewable Tums. She states that she is not inclined to take medication and last up completely necessary. She believes that pasta is a trigger for her reflux symptoms. She denies any heartburn symptoms. She has not had prior EGD. ROS General General: Yes fatigue; No weight change, appetite, colon cancer, breast cancer or weakness HEENT HEENT: No difficulty swallowing, eye injury, eye surgery, swollen glands or hoarseness Endo Endocrine: No thyroid disease, diabetes mellitus, thyroid cancer, Hair loss, heat intolerance or cold intolerance Skin Skin: No rash or changing moles Musc Musculoskeletal: Yes arthritis and rheumatoid arthritis; No back problems, gout or joint pain Cardio Cardiovascular: No murmur, pacemaker, heart disease, atrial fibrillation, high blood pressure, heart attack, heart stent, palpitations, shortness of breat with exertion or chest pain Psych Psychiatric: No depression, anxiety or hearing voices Resp Respiratory: No shortness of breath, No sleep apnea, No cough, No COPD, No a sthma, No emphysema and No wheezing Gastro Gastrointestinal: Yes abdominal pain, Yes nausea or vomiting, Yes diarrhea, No constipation, No blood in stool, Yes acid reflux, No hemorrhoids, No ulcers, No gallbladder problem and No black,tarry stools Matthew Hematologic: No blood thinners, No blood disorders, No bleeding, No anemia and No blood clots Neuro Neurologic: No system reviewed and no additional complaints, except as documented, No as per HPI, No abnormal gait, No abnormal hearing, No abnormal movements, No abnormal speech, No behavioral changes, No burning sensations, No confusion, No convulsions, No disequilibrium, No dizziness, No localized weakness, No frequent falls, No headache(s), No lack of coordination, No loss of vision, No memory loss, No numbness, No other visual disturbances, No radicular pain, No restless legs, No sensory deficit, No syncope, No tingling, No tremor(s), No weakness and No other Exam Const General: cooperative, comfortable, no acute distress and not anxious Orientation: alert, awake and oriented x3 Resp Effort & Inspection: normal respiratory effort GI Other: Nondistended, soft, nontender to palpation x4 quadrants Assessment and Plan Assessment and Plan (1) Diverticulitis: Status: Acute Comment: This is a 57-year-old female who is recently resolved her second bout of acute diverticulitis. She is referred to me for this issue as well as for the fact that she is due for updated colonoscopy since her previous colonoscopy with Dr. Marcelino occurred in 2012?now 10 years ago. Mrs. Everett and I had a discussion regarding diverticulitis and its natural history as well as any preventative measures she may take. She previously canceled a colonoscopy last year with us, but states that she is inclined to move forward this time around given her recent bout of diverticulitis. This procedure was described in detail including her bowel prep. I shared with her that any biopsies would require pathologic lead time. She accepts all this information and denies any further questions. Plan: Plan will be to complete colonoscopy on first mutually agreeable date under local MAC. Pre-procedure prep discussed and paper instructions provided. Patient is also made aware that she will need to have a train driver with her the day of the procedure. 2-day prep is requested given patient's history of constipation and elongated colon I have examined the patient and the H&P has been reviewed. There are no clinical changes since date of exam. Patient confirms that she has completed her prep successfully and that her output is now clear. She complains of some mild crampy pain which she wonders is potentially colonic spasms from her prep, but otherwise is doing well. She denies any further questions regarding today's procedure so we will proceed to the operating room for planned colonoscopy as discussed in detail above.
--- NOTE | 2022-11-29 12:28 | OP.COLON_ITS ---
Patient Name: America Everett Procedure Date: 11/29/2022 10:05 AM Date of : 1965 Age: 57 Procedure: Colonoscopy Indications: Diverticulitis Providers: Titus Coelho MD Referring MD: Titus Coelho MD Medicines: See the Anesthesia note for documentation of the administered medications Patient Profile: Last Colonoscopy: more than 10 years ago. Complications: No immediate complications. Estimated blood loss: Minimal. Procedure: Pre-Anesthesia Assessment: - The heart rate, respiratory rate, oxygen saturations, blood pressure, adequacy of pulmonary ventilation, and response to care were monitored throughout the procedure. After I obtained informed consent, the scope was passed under direct vision. Throughout the procedure, the patient's blood pressure, pulse, and oxygen saturations were monitored continuously. The colonoscope was introduced through the anus and advanced to the cecum, identified by the appendiceal orifice, ileocecal valve and palpation. The colonoscopy was technically difficult and complex due to multiple diverticula in the colon, poor bowel prep, a redundant colon and a tortuous colon. Successful completion of the procedure was aided by withdrawing and reinserting the scope, using scope torsion and lavage. The patient tolerated the procedure well. The quality of the bowel preparation was fair. Scope In: 11:04:51 AM Scope Withdrawal Time 0 hours 34 minutes 13 seconds Scope Out: 12:13:06 PM Total Procedure Duration Time 1 hour 8 minutes 15 seconds Findings: The sigmoid colon and ascending colon were moderately tortuous. No biopsies or other specimens were collected for this exam. A 7 mm polyp was found in the rectum. The polyp was semi-pedunculated. Biopsies were taken with a cold forceps for histology. Biopsies were taken with a cold forceps for histology. Estimated blood loss was minimal. Multiple small and large-mouthed diverticula were found in the sigmoid colon. There was no evidence of diverticular bleeding. No biopsies or other specimens were collected for this exam. The exam was otherwise without abnormality on direct and retroflexion views. Impression: - Preparation of the colon was fair. - Tortuous colon. No specimens collected. - One 7 mm polyp in the rectum. Biopsied. - Moderate diverticulosis in the sigmoid colon. There was no evidence of diverticular bleeding. No specimens collected. - The examination was otherwise normal on direct and retroflexion views. Recommendation: - Discharge patient to home (via wheelchair). - High fiber diet today. - Continue present medications. - Await pathology results. - Repeat colonoscopy date to be determined after pending pathology results are reviewed for surveillance based on pathology results. - Telephone my office for pathology results in 1 week. Procedure Code(s): --- Professional --- 22078, Colonoscopy, flexible; with biopsy, single or multiple Diagnosis Code(s): --- Professional --- K62.1, Rectal polyp K57.32, Diverticulitis of large intestine without perforation or abscess without bleeding K57.30, Diverticulosis of large intestine without perforation or abscess without bleeding Q43.8, Other specified congenital malformations of intestine CPT copyright 2017 [employer]. All rights reserved. The codes documented in this report are preliminary and upon store standards associate review may be revised to meet current compliance requirements. Titus Coelho MD 11/29/2022 12:28:03 PM This report has been signed electronically. Number of Addenda: 0 Note Initiated On: 11/29/2022 10:05 AM
--- NOTE | 2022-11-29 12:29 | OP.CCLET_ITS ---
11/29/2022 Art Castaneda [address] [place] [address] Re : Colonoscopy procedure for America Everett Dear Dr. Castaneda This procedure was performed on Tuesday, November 29, 2022. My impressions and recommendations are as follows: Impressions : - Preparation of the colon was fair. - Tortuous colon. No specimens collected. - One 7 mm polyp in the rectum. Biopsied. - Moderate diverticulosis in the sigmoid colon. There was no evidence of diverticular bleeding. No specimens collected. - The examination was otherwise normal on direct and retroflexion views. Recommendations : - Discharge patient to home (via wheelchair). - High fiber diet today. - Continue present medications. - Await pathology results. - Repeat colonoscopy date to be determined after pending pathology results are reviewed for surveillance based on pathology results. - Telephone my office for pathology results in 1 week. My findings are described in the full procedure note, which is enclosed. If I can be of further assistance, please feel free to contact me at Doctor phone number(s): , Work: . Sincerely, Titus Coelho MD 11/29/2022 12:28:03 PM This report has been signed electronically.
--- NOTE | 2022-11-29 13:27 | SUR.PHASEII ---
patient updated on Dr. Coelho's instructions about passing gas and moving around. patient states she would rather be at home and recover there. Dr. Coelho called again by this RN and he was updated on patient preferring to go home. He stated that as long as patient is able to ambulate and vitals are stable okay for patient to go home. Patient stable and walked to car with . Family will be with patient at home. Pain improving with belching and passing flatus. Bowel sounds present in all four quadrants. abdomen remains soft to touch.
== END 2022-11-29 13:40 | disposition home or self-care (01) ==
LOC: SDC 09:13 → AC 09:15
PROVIDERS: PCP Family Medicine; Referring Provider Surgery; Visit Provider Surgery
PROC: 0DJD8ZZ Inspection of Lower Intestinal Tract, Via Natural or Artificial Opening Endoscopic (ICD-10-PCS; CPT 45378; principal; 2022-11-29 10:25)
DX: K57.32 Diverticulitis of large intestine without perforation or abscess without bleeding (principal); K62.1 Rectal polyp; Z86.16 Personal history of COVID-19; Z83.79 Family history of other diseases of the digestive system
CPT/HCPCS: 45380; 88305; 88341; 88342; J7120; J2405

== ENCOUNTER → 2023-09-01 | Outpatient (CLI) | payer BC, SELFPAY ==
[2023-09-01 10:06] LABS: Hematocrit 38.5 % (37-47); Hemoglobin 12.7 g/dL (12.0-15.0); Mean Corpuscular Hgb 31.1 pg (27.0-32.0); Mean Corpuscular Volume 94.1 fL (81-99); Mean Platelet Vol. 10.2 fl (6.2-12.0); Platelet Count 266 K/mm3 (150-450); RBC Distribution Width CV 12.8 % (11.6-14.6); RBC Distribution Width SD 44.4 fl (35.1-43.9); Red Blood Count 4.09 M/mm3 (4.2-5.4); White Blood Count 4.3 K/mm3 (4.4-11.0)
[2023-09-01 10:22] LABS: T4 Free Direct 0.93 ng/dL (0.76-1.46)
[2023-09-01 10:22] LABS: Vitamin B12 522 pg/mL (211-911); Vitamin D,25 Hydroxy 73.6 ng/mL
[2023-09-01 10:44] LABS: ALB/GLOB Ratio 1.1 RATIO (0.9-2.4); AST(SGOT) 16 U/L (15-37); Alanine Aminotransfer ALT/SGPT 26 U/L (13-56); Albumin, Serum 3.6 g/dL (3.2-5.0); Alkaline Phosphatase 64 U/L (45-117); Anion Gap 6 (5-15); BUN 23 mg/dL (7-18); BUN/Creat Ratio 34.6 RATIO (10-20); Calcium,Total 8.9 mg/dL (8.5-10.1); Chloride 107 mmol/L (98-107); Cholesterol 253 mg/dL (200); Creatinine, Serum 0.66 mg/dL (0.55-1.02); EST Glomerular Filtration Rate 96 mL/min (>60); Est Glom Filt Rate - Afr Amer 117 mL/min (>60); Globulin 3.4 g/dL (2.2-4.2); Glucose 72 mg/dL (74-106); High Density Lipoprotein 76 mg/dL; Potassium 3.7 mmol/L (3.5-5.1); Sodium Level 140 mmol/L (136-145); Thyroid Stim Hormone (TSH) 6.21 uIU/mL (0.358-3.74); Triglycerides 69 mg/dL; Very Low Density Lipoprotein 14 mg/dL (5-40)
== END | disposition home or self-care (01) ==
PROVIDERS: PCP Family Medicine; Referring Provider Family Medicine; Visit Provider Family Medicine
DX: E53.8 Deficiency of other specified B group vitamins (principal); R79.89 Other specified abnormal findings of blood chemistry; E03.9 Hypothyroidism, unspecified; K21.9 Gastro-esophageal reflux disease without esophagitis; Z13.220 Encounter for screening for lipoid disorders
CPT/HCPCS: 36415; 80053; 80061; 82306; 82607; 84439; 84443; 85027

== ENCOUNTER → 2023-09-15 | Outpatient (CLI) | payer BC, SELFPAY ==
--- NOTE | 2023-09-15 07:49 | BI_ITS ---
MAMMOGRAPHY - BILATERAL SCREENING REASON FOR EXAM: Female, 58 years old. Routine annual screening examination. PERTINENT HISTORY: Non-contributory. TECHNIQUE: Digital bilateral breast dejon (3D mammographic acquisition) in the CC and MLO projections. 2-D mediolateral oblique (MLO) and craniocaudad (CC) views of both breasts were obtained. CAD: Full Field Digital Mammography with Computer Added Detection was performed. COMPARISON: Comparison is made with prior study September 11, 2022. FINDINGS: Breast Composition: The breasts are almost entirely fatty. There are no dominant masses or suspicious calcifications. Stable small bilateral fat-containing axillary lymph nodes. No other significant abnormalities are identified. There has been no significant change since the prior study. BI/SCRN MAMM (CAD)W/DEJON BILAT IMPRESSION: Stable bilateral screening mammogram. Yearly follow-up mammogram recommended. (A) ASSESSMENT CATEGORY: BIRADS Category 2: Benign. A letter regarding these results will be sent to the patient by the facility within 30 days. Approximately 10% of breast cancers are not detected by mammography. A normal mammogram should not delay biopsy of a clinically suspicious abnormality. [id number] Electronically Signed: Cole King MD at 8:32 EDT ,
== END | disposition home or self-care (01) ==
LOC: OPBI 07:47
PROVIDERS: PCP Family Medicine; Referring Provider Family Medicine; Visit Provider Family Medicine
DX: Z12.31 Encounter for screening mammogram for malignant neoplasm of breast (principal)
CPT/HCPCS: 77063; 77067

== ENCOUNTER → 2024-06-29 | Outpatient (CLI) | payer BC, SELFPAY ==
--- NOTE | 2024-06-29 09:37 | RAD_ITS ---
PROCEDURE: CHEST PA AND LATERAL TECHNIQUE: Single frontal image including the chest and abdomen. COMPARISON: None. FINDINGS: The cardiothymic contour is normal. The lungs are clear. Bowel gas pattern is normal. No evidence of bowel obstruction or free air. The bones are unremarkable. No radiopaque foreign body is identified. RAD/Chest PA and Lateral IMPRESSION: No evidence of acute cardiopulmonary disease. Negative examination. Reading Location: [id number]
== END | disposition home or self-care (01) ==
LOC: MTRAD 09:37
PROVIDERS: PCP Family Medicine; Referring Provider Physician Assistant; Visit Provider Physician Assistant
DX: R05.9 Cough, unspecified (principal)
CPT/HCPCS: 71046

== ENCOUNTER → 2024-09-02 | Outpatient (CLI) | payer BC, SELFPAY ==
[2024-09-02 08:12] LABS: Ionized Calcium Order ORDER TUBE
[2024-09-02 10:47] LABS: Hemoglobin 13.2 g/dL (12.0-15.0); Mean Corp Hgb Conc 33.8 g/dL (32-36); Mean Corpuscular Volume 94.7 fL (81-99); Mean Platelet Vol. 10.6 fl (6.2-12.0); Platelet Count 286 K/mm3 (150-450); RBC Distribution Width CV 13.2 % (11.6-14.6); RBC Distribution Width SD 45.8 fl (35.1-43.9); Red Blood Count 4.12 M/mm3 (4.2-5.4); White Blood Count 4.2 K/mm3 (4.4-11.0)
[2024-09-02 11:55] LABS: PTHIN 32 pg/mL (11-61)
[2024-09-02 12:02] LABS: ALB/GLOB Ratio 1.5 RATIO (0.9-2.4); AST(SGOT) 30 U/L (<=31); Alanine Aminotransfer ALT/SGPT 42 U/L (<=34); Albumin, Serum 4.5 g/dL (3.4-4.8); Alkaline Phosphatase 81 U/L (35-104); Anion Gap 12 (5-15); BUN 21 mg/dL (4-19); BUN/Creat Ratio 27.3 RATIO (10-20); Carbon Dioxide 25.8 mmol/L (21.0-32.0); Chloride 104 mmol/L (98-108); Cholesterol 256 mg/dL (<=200); Creatinine, Serum 0.75 mg/dL (0.70-1.20); EST Glomerular Filtration Rate 91 (>60); Glucose 96 mg/dL (70-99); High Density Lipoprotein 80 mg/dL; Low Density Lipoprotein Calc. 162 mg/dL; Potassium 4.7 mmol/L (3.3-5.1); Protein, Total 7.6 g/dL (5.9-8.4); Sodium Level 142 mmol/L (133-145); Total Bilirubin 0.35 mg/dL (0.00-1.30); Triglycerides 70 mg/dL; Very Low Density Lipoprotein 14 mg/dL (5-40); Vitamin D,25 Hydroxy 68.6 ng/mL (30-100); cholesterol:hdl ratio screen 3.19
[2024-09-02 12:40] LABS: Ionized Calcium 1.24 mmol/L (1.09-1.30)
== END | disposition home or self-care (01) ==
LOC: MTLAB 07:04
PROVIDERS: PCP Family Medicine; Referring Provider Family Medicine; Visit Provider Family Medicine
DX: Z13.220 Encounter for screening for lipoid disorders (principal); L40.50 Arthropathic psoriasis, unspecified; M81.0 Age-related osteoporosis without current pathological fracture; K21.9 Gastro-esophageal reflux disease without esophagitis
CPT/HCPCS: 80053; 80061; 82306; 82330; 83970; 84443; 85027

== ENCOUNTER → 2024-09-14 | Outpatient (CLI) | payer BC, SELFPAY ==
--- NOTE | 2024-09-14 07:26 | BI_ITS ---
EXAM: SCRN MAMM (CAD)W/DEJON BILAT DATE: 09/14/2024 CLINICAL HISTORY: F, Age 59 y/o , SCREENING Routine annual follow-up. No known family history. BREAST CANCER RISK ASSESSMENT: Not assessed. TECHNIQUE: Bilateral screening digital breast tomosynthesis with 2D and 3D images. Computer aided detection. COMPARISON: Prior exam(s) dated September 15, 2023.. FINDINGS: TISSUE DENSITY: The breast tissue is almost entirely fatty. Bilateral Breast Mammographic Findings: No significant masses, calcifications or other abnormalities are identified. There are no other dominant masses, areas of architectural distortion, or suspicious calcifications. BI/SCRN MAMM (CAD)W/DEJON BILAT IMPRESSION: Right Breast: BIRADS 1 NEGATIVE. Left Breast: BIRADS 1 NEGATIVE. OVERALL FINAL ASSESSMENT: BIRADS 1 NEGATIVE RECOMMENDATION: Routine annual follow-up in 1 Year A letter with findings and recommendations will be mailed to the patient. Reading Location: [place] [id number]
--- NOTE | 2024-09-14 07:29 | BD_ITS ---
PROCEDURE: DEXA BONE DENSITY STUDY 09/14/2024 REASON FOR EXAM: F, age 59 y/o . Postmenopausal. TECHNIQUE: DXA scan of the lumbar spine and both hips, using make and model. REFERENCE LINKS: [facility] Adult Positions COMPARISON: Comparison is made with prior study dated September 11, 2022. FINDINGS: BMD and T-SCORES Lumbar spine: 0.692 g/cm2, T-Score -3.0 -1.4 change from prior: Loss of 4.4% Left femoral neck: 0.666 g/cm2, T-Score -1.6 Femoral neck comparison data not recommended for monitoring change. Left total hip: 0.759 g/cm2, T-Score -1.5 Change from prior: Improvement by 0.2% Right femoral neck: 0.660 g/cm2, T-Score -1.7 Femoral neck comparison data not recommended for monitoring change. Right total hip: 0.752 g/cm2, T-Score -1.6 Change from prior: Loss of 5% Fracture Risk Calculation: FRAX (10-year Fracture Risk) Score: FRAX scores should never be reported in a patient with osteoporosis on DEXA or for any patient that is on bone medication. The patient doesmeet the pharmacological treatment recommendations for prevention of osteoporosis BD/Dexa Bone Density Study IMPRESSION: OSTEOPOROSIS. Recommend follow-up as clinically warranted. Reading Location: [place] [id number]
== END | disposition home or self-care (01) ==
LOC: OPBD 07:25
PROVIDERS: PCP Family Medicine; Referring Provider Family Medicine; Visit Provider Family Medicine
DX: M81.0 Age-related osteoporosis without current pathological fracture (principal); Z12.31 Encounter for screening mammogram for malignant neoplasm of breast
CPT/HCPCS: 77063; 77067; 77080

== ENCOUNTER → 2025-03-09 | Outpatient (CLI) | payer BC, SELFPAY ==
[2025-03-09 12:14] LABS: AST(SGOT) 17 U/L (<=31); Alanine Aminotransfer ALT/SGPT 16 U/L (<=34); Albumin, Serum 4.3 g/dL (3.4-4.8); Alkaline Phosphatase 62 U/L (35-104); Anion Gap 14 (5-15); BUN 21 mg/dL (4-19); BUN/Creat Ratio 31.7 RATIO (10-20); Bilirubin, Direct 0.11 mg/dL (0.00-0.30); Calcium,Total 9.5 mg/dL (7.6-11.0); Carbon Dioxide 22.9 mmol/L (21.0-32.0); Chloride 105 mmol/L (98-108); Globulin 2.9 g/dL (2.2-4.2); Glucose 103 mg/dL (70-99); Magnesium 2.4 mg/dL (1.5-2.2); Potassium 4.3 mmol/L (3.3-5.1); Vitamin D,25 Hydroxy 73.8 ng/mL (30-100)
== END | disposition home or self-care (01) ==
LOC: MFPLAB 08:27
PROVIDERS: PCP Family Medicine; Visit Provider Family Medicine
DX: E03.9 Hypothyroidism, unspecified (principal); M81.0 Age-related osteoporosis without current pathological fracture; R79.89 Other specified abnormal findings of blood chemistry
CPT/HCPCS: 36415; 80048; 80076; 82306; 83735; 84439; 84443